=== PATIENT | male | born 1985 | race Caucasian/White ===

== ENCOUNTER 2020-10-29 11:56 | Outpatient (CLI) | payer BC, SELFPAY ==
--- NOTE | ~2020-10-29 | XR_ITS ---
XR hand LT 2V DATE: 10/29/2020 12:15 INDICATION: Left hand pain TECHNIQUE: AP and lateral views COMPARISON: None FINDINGS: No fracture or dislocation, periosteal reaction or bone destruction, erosive change or maximilian drocalcinosis. Joint spaces are preserved. IMPRESSION: Negative Reviewed, dictated and finalized at location B. IMPRESSION: Negative
[2020-10-29 12:19] LABS: Basophils Percent Auto 0.4 % (0.2-1.2); Eosinophils Percent Auto 0.4 % (0-4.4); Hematocrit 43.9 % (42.0-52.0); Hemoglobin 15.4 g/dL (14.0-18.0); Immature Granulocyte Absolute 0.01 K/mm3 (0.00-0.031); Immature Granulocyte Percent A 0.2 % (0-0.5); Lymphocytes Absolute Auto 1.71 K/mm3 (0.9-3.2); Lymphocytes Percent Auto 30.5 % (18.3-44.2); Mean Corpuscular HGB Conc 35.1 g/dl (32-36); Mean Corpuscular Hemoglobin 29.6 pg (26-34); Mean Corpuscular Volume 84.4 fl (80-100); Mean Platelet Volume 10.1 fl (7.4-10.4); Monocytes Absolute Auto 0.4 K/mm3 (0.1-0.6); Monocytes Percent Auto 7.8 % (2.6-8.5); Neutrophils Absolute Auto 3.4 K/mm3 (1.3-6.7); Neutrophils Percent Auto 60.7 % (45.5-73.1); Platelet Count Result 256 k/mm3 (150-375); White Blood Count 5.6 K/mm3 (4.5-10.0)
[2020-10-29 12:31] LABS: Anion Gap 9 mmol/L (8-16); Blood Urea Nitrogen 24 mg/dL (9-20); Calcium 9.8 mg/dL (8.4-10.2); Carbon Dioxide 28 mmol/L (22-30); Chloride 101 mmol/L (98-107); Cholesterol 187 mg/dL (0-200); Estimated Glomerular Filt Rate > 60; Glucose 91 mg/dL (75-110); HDL Direct 65 mg/dL; Potassium 4.3 mmol/L (3.4-5.0); Sodium 138 mmol/L (137-145); Triglycerides 101 mg/dL (<150)
[2020-10-29 12:42] LABS: LDL Cholesterol Direct 77 mg/dL
[2020-10-29 13:03] LABS: Prostate Specific Antigen 1.5 ng/mL (< OR = 4.0); Thyroid Stimulating Hormone 0.556 uIU/mL (0.465-4.680)
[2020-10-29 13:11] LABS: Free T4 Free Thyroxine 1.15 ng/mL (0.78-2.19)
== END 2020-10-29 11:57 | disposition home or self-care (01) ==
PROVIDERS: PCP Family Medicine; Visit Provider Nurse Practitioner Family
DX: M79.642 Pain in left hand (principal); E04.1 Nontoxic single thyroid nodule; Z13.29 Encounter for screening for other suspected endocrine disorder; Z12.5 Encounter for screening for malignant neoplasm of prostate; Z13.220 Encounter for screening for lipoid disorders; Z15.01 Genetic susceptibility to malignant neoplasm of breast; Z15.09 Genetic susceptibility to other malignant neoplasm; Z80.9 Family history of malignant neoplasm, unspecified; Z13.1 Encounter for screening for diabetes mellitus
CPT/HCPCS: 36415; 73120; 80048; 80061; 84153; 84439; 84443; 85025; G0103

== ENCOUNTER 2022-03-03 01:19 | Day surgery (SDC) | payer BC, SELFPAY ==
[2022-02-27 11:04] VITALS: BMI 28.8
--- NOTE | 2022-02-27 11:07 | PC.NURSE ---
Report to the Outpatient Waiting Room, entrance under the green pavilion located off [facility], at time 0730 on date 03/03/22. Planned Procedure Time: 0930. Time changes happen often and if your time is changed the preop area will call you the afternoon before. - You and your visitor will be asked to self-screen and do not enter if you have any COVID symptoms. - We encourage only one visitor and NO visitors under age 16 are allowed at this time. Your visitor will receive communication by the phone number that is given day of service. - The patient visitor is requested to social distance or may leave the building when not with patient due to restrictions. - A mask is OPTIONAL within the hospital. Patients may have clear liquids (water, carbonated beverages, clear teas, apple juice) until 3 hours prior to surgery with a maximum of 20 ounces. - No food from midnight until time of surgery Take the following medications with a SIP of water the morning of surgery: NONE Medications to discontinue per physician: VITAMIN Date to take last dose: 02/27/22 Please no make-up, nail telugu, hairspray, perfume, deodorant, or body powder the day of surgery. No jewelry (including any body piercings) or valuables the day of surgery, leave them at home. Please take a shower or bath the night before, or the morning of, surgery with an antibacterial soap. Wear comfortable, loose fitting clothing. - Jewelry must be removed prior to entering the operating room. Rings and piercings that are not removed may be cut off. - The hospital will not accept responsibility for valuables. - Please leave all valuables, including medications, at home the day of surgery. If you are going home after surgery, a licensed construction driver must drive you home. - NO public transportation without another adult. - We recommend that an adult stay with you for 24 hours following discharge. - We also recommend that you do not drive, make important decision, drink alcoholic beverages, or take any drugs that were not prescribed by your health care provider for at least 24 hours after your discharge time. Follow any additional instructions given to you from your surgeon. If you or anyone in your household have experienced Covid symptoms in the past week, please notify your surgeon or the nurse liaison at the phone number below for possible testing. Telephone instructions given to PT - MAKALYA TIERNEY and asked if any additional questions and then verbalized understanding. Patient advised to call surgeon office or pre surgery nurse liaison [phone] if any additional questions.
--- NOTE | 2022-03-02 07:52 | PM.IMHP ---
H&P: HPI History of Present Illness Date/Time: 03/02/22 07:52 Chief Complaint: Deviation nasal obstruction nasal congestion turbinate hypertrophy Narrative: planned surgical procedure Review of Systems Review of Systems: All systems reviewed & are unremarkable except as noted in HPI and below [facility] Past Medical History Medical History BMI 30.0-30.9,adult Thyroid nodule Surgical History Surgical History History of tonsillectomy and adenoidectomy Family History Family History Other Biallelic mutation of CHEK2 gene Carcinoma of colon Social History Social History Smoking status: Never smoker Alcohol intake: current Drinks per week: 5 Substance use: never Substance use type: does not use Living arrangements: with family Spiritual care concerns: No Meds Home Medications and Allergies Home Medications Medication Instructions Recorded Confirmed Type fluticasone propionate 50 1 spray intranasal BID #16 mL 05/23/21 02/27/22 Rx mcg/actuation nasal spray,suspension zolpidem 10 mg tablet (Ambien) 10 mg PO QHS PRN insomnia #30 tabs 11/16/21 02/27/22 Rx multivitamin 1 tablet PO DAILY 02/27/22 02/27/22 History Allergies Allergy/AdvReac Type Severity Reaction Status Date / Time No Known Allergies Allergy Verified 02/27/22 11:03 Exam Narrative: septal deviation turbinate hypertrophy Assessment and Plan Assessment and plan (1) Hypertrophy of both inferior nasal turbinates: Code(s): J34.3 - Hypertrophy of nasal turbinates Status: Acute Assessment and Plan: plan operating room endoscopic assisted septoplasty, longer than normal time, 2 hours of my time, will have to use hemitransection incision had reset caudal cartilage.? Risks discussed including bleeding infection damage to surrounding structures CSF leak brain damage blindness change in vision septal perforation failure to resolve symptoms if the septum would moved back over.? Turbinate reduction as well would need suction Bovie likely cauterize the turbinates a bit. (2) Nasal obstruction: Code(s): J34.89 - Other specified disorders of nose and nasal sinuses Status: Acute (3) Nasal congestion: Code(s): R09.81 - Nasal congestion Status: Acute (4) History of deviated nasal septum: Code(s): Z87.09 - Personal history of other diseases of the respiratory system Status: Acute
--- NOTE | 2022-03-02 15:51 | P.PNAN_ITS ---
Anes - Initial Pre Proc Eval Procedure: Operation Date: 03/03/22 07:30 Proposed Procedures p Endoscopic Septoplasty - Lj Zhou MD s Bilateral Inferior Turbinectomy with Outfracture - Lj Zhou MD Date/Time: 03/02/22 15:51 Surgeon: Lj Zhou MD Pre Op Diagnosis: Nasal Septal Deviation, Turbinate Hypertrophy Patient Data Age: 37 Gender: M Height: 1.88 m Weight: 101.6 kg Allergies Allergy/AdvReac Type Severity Reaction Status Date / Time No Known Allergies Allergy Verified 03/03/22 06:56 Home Medications Medication Instructions Recorded Confirmed Type fluticasone propionate 50 1 spray intranasal BID #16 mL 05/23/21 02/27/22 Rx mcg/actuation nasal spray,suspension zolpidem 10 mg tablet (Ambien) 10 mg PO QHS PRN insomnia #30 tabs 11/16/21 02/27/22 Rx multivitamin 1 tablet PO DAILY 02/27/22 02/27/22 History Patient hx anesthesia problems: none Family hx anesthesia problems: none Results Review: All pre-operative results and documents have been reviewed as part of the pre- operative evaluation. [facility] Past Medical History Medical History BMI 30.0-30.9,adult Thyroid nodule Surgical History Surgical History History of tonsillectomy and adenoidectomy Family History Family History Other Biallelic mutation of CHEK2 gene Carcinoma of colon Social History Social History Smoking status: Never smoker Alcohol intake: current Drinks per week: 5 Substance use: never Substance use type: does not use Living arrangements: with family Spiritual care concerns: No Anes - Eval Final PreProcedure Day of Procedure 03/02/22 15:51 Patient weight: overweight Heart: regular rate and rhythm Lungs: clear to auscultation Airway: Mallampati scale class II Neurological: alert and oriented Last oral intake: >/= 8 hours ASA classification: II Emergent: no Anesthetic plan: proceed Anesthesia type and monitoring: general ETT and standard monitoring Results Review: All pre-operative results and documents have been reviewed as part of the pre- operative evaluation. Informed Consent: The patient's anesthetic plan and its attendant risks and benefits were discussed with the patient/family/POA. Questions were solicited and answers provided to the satisfaction of the patient/family/POA.
[2022-03-03] VITALS (8 sets, daily range): BP systolic 125–169; BP diastolic 70–105; PULSE 55–83; RESP 12–18; TEMP 36.4–36.6; O2SAT 98–100
[2022-03-03] MEDS: LACTATED RINGERS 1,000 ML 30 ML IV CONT ×2 (07:01→09:09)
[2022-03-03] MEDS: ACETAMINOPHEN 500 MG TABLET 1000 MG PO (07:08)
--- NOTE | 2022-03-03 07:15 | WPDHPUPDATE1 ---
History and Physical Update Update Date/Time: 03/03/22 07:15 Update, septum and inferior turbinate submucosal reduction with outfracture
[2022-03-03] MEDS: ceFAZolin 2 GM/D5W 50 ML 2 GM/50 ML BAG IVPB (07:21)
[2022-03-03] MEDS: OXYMETAZOLINE HCL 0.05% NAS 15 ML BTL (*BKC) 1 SPRAY NASAL (07:49)
[2022-03-03] MEDS: MUPIROCIN 2% OINT 22 GM TUBE 1 APPLIC EACH NARE (09:00)
--- NOTE | 2022-03-03 09:27 | P.OP_ITS ---
Procedure Note - Detailed Date of Procedure 03/03/22 Pre-op Diagnosis Nasal Septal Deviation, Turbinate Hypertrophy, nasal obstruction, nasal congestion Post-op Diagnosis Same Procedure Performed septoplasty, inferior turbinate submucosal reduction outfracture Surgeon Lj Zhou MD Anesthesia General Indications see above Findings severely deviated septum to the left large turbinates, small perforations on the left nasal septal flap none on the right. Description of Procedure Patient identified consent verified. Patient brought operating. Time-out performed. General anesthesia induced endotracheal tube secured taped left lower lip. Patient prepped positioned Afrin-soaked pledgets placed 2nd time-out performed. Patient draped. Afrin-soaked pledgets removed 0 degree endoscope utilized total of 13 cc 1% lidocaine 1 100,000 parts epinephrine injected into the bilateral nasal septum and inferior turbinates. Andrzej incision made using a 15 blade left nasal septal flap elevated 7 Irish suction. Osteotome utilized to cross over the septum. Right nasal septal flap elevated small tears on the left especially over a large spur. Deviated septum removed with Vishal Evans forceps osteotome Ad[place]ike forceps. [place] incision then closed with 4 interrupted 5 0 fast gut sutures. Turbinates entered anteriorly using the turbinate blade they were reduced in the submucosal plane using martin rodebrider with inferior turbinate blade. They were then outfractured using the [place]. Total blood loss about 25 cc. Bilateral nasal passages suction clean. Powers splints placed sutured anteriorly using mattress 3-0 suture. I performed all dictated portions the procedure no complications. Care the patient given Anesthesiology patient taken to PACU. Estimated Blood Loss -25.0 Drains No Packing No Pathology None sent Complications No immediate complications Condition Stable Disposition PACU
[2022-03-03] MEDS: oxyCODONE HCL (*CRX) 5 MG TAB IR PO (10:09)
== END 2022-03-03 10:54 | disposition home or self-care (01) ==
PROVIDERS: PCP Family Medicine; Visit Provider Otolaryngology
PROC: (CPT 30520; principal; 2022-03-03 07:30)
PROC: (CPT 30520; 2022-03-03 07:30)
DX: J34.2 Deviated nasal septum (principal); J34.3 Hypertrophy of nasal turbinates; J34.89 Other specified disorders of nose and nasal sinuses; R09.81 Nasal congestion
CPT/HCPCS: 30520; 30140; A9270; J0330; J0690; J1200; J2405; J2704; J7120

== ENCOUNTER → 2022-08-11 13:59 | Outpatient (CLI) | payer BC, SELFPAY ==
--- NOTE | ~2022-08-11 | XR_ITS ---
EXAMINATION: XR elbow RT 2V DATE: 08/11/2022 14:45 INDICATION: Right elbow pain TECHNIQUE: Anteroposterior and lateral views of the right elbow were obtained. COMPARISON: None. FINDINGS: Alignment is normal. No fracture or joint effusion. Joint spaces are normal. Soft tissues are unremar kable. IMPRESSION: 1. Negative right elbow radiographs. Reviewed, dictated and finalized at location A.
--- NOTE | ~2022-08-11 | XR_ITS ---
EXAMINATION: XR_KNEE1-2VLT_CR, XR_KNEE1-2VRT_CR DATE: 08/11/2022 14:46 INDICATION: Unspecified knee pain TECHNIQUE: 1. Weight bearing anteroposterior and lateral views of the left knee were obtained. 2. Weight bearing anteroposterior and lateral views of the right knee were obtained. COMPARISON: None. FINDINGS: Normal alignment at the left and right knees. No fracture. Joint spaces are normal at all 3 compartme nts of both knees. Sclerotic lesion secondary to cortical thickening at the posterior lateral metaphy seal region of the distal left femur location typical of a benign cortical desmoid. No periosteal benton ction, cortical erosion or other aggressive features identified. Are typical small sclerotic bone isl ands at the lateral left and right tibial plateaus. No other suspicious lytic or blastic bone lesions . No knee joint effusions. Mild left-sided prepatellar soft tissue swelling. IMPRESSION: 1. Sclerotic lesion along the posterior left femoral metaphyseal region most likely representing a be nign cortical desmoid. 2. No knee joint effusions or acute osseous abnormality at either knee. Reviewed, dictated and finalized at location A. IMPRESSION: 1. Sclerotic lesion along the posterior left femoral metaphyseal region most li katalina representing a benign cortical desmoid. 2. No knee joint effusions or acute osseous abnormality at either knee.
--- NOTE | ~2022-08-11 | XR_ITS ---
EXAMINATION: XR chest 2V DATE: 08/11/2022 14:45 INDICATION: Cough, chest tightness, sore throat and fever TECHNIQUE: PA and lateral views of the chest were obtained. COMPARISON: None FINDINGS: The lungs are clear with no focal airspace opacities, pulmonary edema, pleural effusion or pneumothor ax. The cardiomediastinal silhouette is normal. Mild thoracic spondylosis. IMPRESSION: 1. No acute cardiopulmonary disease. Reviewed, dictated and finalized at location A.
--- NOTE | ~2022-08-11 | XR_ITS ---
EXAMINATION: XR elbow LT 2V DATE: 08/11/2022 14:45 INDICATION: Left elbow pain TECHNIQUE: Anteroposterior and lateral views of the left elbow were obtained. COMPARISON: None. FINDINGS: Alignment is normal. No fracture or joint effusion. Joint spaces are normal. Soft tissues are unremar kable. IMPRESSION: 1. Negative left elbow radiographs. Reviewed, dictated and finalized at location A.
== END ==
PROVIDERS: PCP Family Medicine; Visit Provider Nurse Practitioner Family
DX: R05.9 Cough, unspecified (principal); M25.569 Pain in unspecified knee; M25.529 Pain in unspecified elbow; M89.9 Disorder of bone, unspecified
CPT/HCPCS: 71046; 73070; 73560

== ENCOUNTER → 2022-08-14 13:06 | Outpatient (CLI) | payer BC, SELFPAY ==
--- NOTE | ~2022-08-14 | US_ITS ---
EXAMINATION: US thyroid DATE: 08/14/2022 13:23 INDICATION: Nontoxic single thyroid nodule. TECHNIQUE: Multiple ultrasound images of the thyroid were obtained. COMPARISON: None. FINDINGS: The right thyroid lobe measures 6.2 x 2.0 x 1.9 cm. The left thyroid lobe measures 5.6 x 1.9 x 2.0 c m. In the left thyroid lobe, there is a 1.6 cm solid, hypoechoic, wider than tall nodule with periph eral calcifications (TI-RADS TR4). In the right thyroid lobe, there is a 9 mm solid, hypoechoic, wide r than tall nodule with ill-defined margin without echogenic foci (TR4). IMPRESSION: 1. Thyroid nodules. Ultrasound-guided fine-needle aspiration of the left thyroid nodule is recommende d if not already performed and if not stable for 5 years. Reviewed, dictated and finalized at location A. IMPRESSION: 1. Thyroid nodules. Ultrasound-guided fine-needle aspiration of the left thyroi d nodule is recommended if not already performed and if not stable for 5 years.
== END ==
PROVIDERS: PCP Family Medicine; Visit Provider Otolaryngology
DX: E04.2 Nontoxic multinodular goiter (principal)
CPT/HCPCS: 76536

== ENCOUNTER 2022-10-06 12:39 | Outpatient (CLI) | payer BC, SELFPAY ==
--- NOTE | ~2022-10-06 | US_ITS ---
EXAMINATION: US FNA w image guidance DATE: 10/06/2022 13:56 INDICATION: Nontoxic single thyroid nodule TECHNIQUE: A time-out was performed to verify the patient's name, date of , and procedure to be performed . The procedure and its benefits and risks were discussed with the patient. Risks specifically discus sed included bleeding and infection. The patient understood the risks and agreed to proceed. The neck was prepped and draped in the usual sterile manner. 3 mL 1% lidocaine was used for local anesthesia . 6 passes were made with a 25G needle into the lesion. Appropriate needle location was documented with continuous sonographic guidance. A sterile bandage was applied. There were no immediate compli cations. FINDINGS: Grayscale ultrasound images demonstrate biopsy needles advanced into a 1.6 cm TI RADS 4 solid nodule with rim calcification in the left thyroid. IMPRESSION: 1. Successful ultrasound-guided fine needle aspiration of a 1.6 cm TI RADS 4 left thyroid nodule. Reviewed, dictated and finalized at location A. IMPRESSION: 1. Successful ultrasound-guided fine needle aspiration of a 1.6 cm TI RADS 4 l eft thyroid nodule.
== END 2022-10-06 12:40 | disposition home or self-care (01) ==
PROVIDERS: PCP Family Medicine; Visit Provider Otolaryngology
DX: E04.1 Nontoxic single thyroid nodule (principal)
CPT/HCPCS: 10005; 88173; 88305

== ENCOUNTER 2023-02-23 08:53 | Emergency (ER) | payer BC, SELFPAY ==
--- NOTE | ~2023-02-23 | US_ITS ---
Testicular ultrasound with doppler. Indication: Right testicular pain. Technique: Real-time sonography the scrotum was performed. Color flow Doppler and Doppler spectral an alysis were performed. Findings: The testes are homogeneous in echotexture bilaterally. There is no evidence of an intrates ticular mass. The right testis measures 5.0 x 2.6 x 3.9 cm and the left 4.8 x 2.4 x 3.6 cm. There is color-flow seen to both testes. Arterial and venous spectral waveforms are seen in both testes. There is no sonographic evidence of torsion. The head of the epididymis is visualized bilaterally and is within normal limits. Minimal bilateral hydroceles noted. Impression: No testicular mass or torsion. Minimal bilateral hydroceles. Reviewed, dictated and finalized at [facility]. E GRADER Impression: No testicular mass or torsion. Minimal bilateral hydroceles.
[2023-02-23 08:55] VITALS: BP 172/98; PULSE 61; RESP 16; TEMP 37; O2SAT 100
--- NOTE | 2023-02-23 09:15 | ED.MALEGU ---
HPI - Male Genitourinary General Chief complaint: Urogenital-Male Stated complaint: Pain Time Seen by Provider: 02/23/23 09:03 History of Present Illness HPI Narrative: 38-year-old male reports for evaluation for right testicular pain intermittently x3 days. Patient describes the pain as intermittent and throbbing in his right testicle that at times radiates into his right abdomen. He states he had sexual intercourse with his today after the onset of symptoms with improvement in pain, then shortly after his pain started again. He states the pain is improved with walking and standing and worse with sitting. He denies injury or trauma, dysuria, hematuria, urinary frequency or urgency, scrotal changes, lumps or bumps, swelling to his testicles. He denies flank pain, nausea or vomiting, or known fever. Denies penile discharge, lesions, anal intercourse, or concern for STDs. Related Data Home Medications Medication Instructions Recorded Confirmed multivitamin 1 tablet PO DAILY 02/27/22 02/15/23 glucosamine HCl 500 mg tablet 500 mg PO DAILY 08/02/22 02/15/23 Allergies Allergy/AdvReac Type Severity Reaction Status Date / Time No Known Allergies Allergy Verified 02/23/23 08:57 Review of Systems Review of Systems: CONSTITUTIONAL: Denies fever, chills EYES: Denies visual changes, redness, or discharge. ENT: Denies rhinorrhea, congestion, sore throat, or otalgia. CARDIOVASCULAR: Denies chest pain, palpitations, or edema. RESPIRATORY: Denies cough or dyspnea. GASTROINTESTINAL: See HPI GENITOURINARY: See HPI SKIN: Denies rash or itching. MUSCULOSKELETAL: Denies back pain, joint pain, or myalgia. NEUROLOGIC: Denies headache, numbness, dizziness, or weakness. PSYCHIATRIC: Denies anxiety or depression. PENDING SALE TO [facility] Past Medical History Medical History BMI 29.0-29.9,adult BMI 30.0-30.9,adult BMI 31.0-31.9,adult Dysuria Marital dysfunction TAI on CPAP Subclinical hyperthyroidism Thyroid nodule Surgical History Surgical History History of tonsillectomy and adenoidectomy Family History Family History Father Colon polyp Mother No problems noted. Sibling Colon polyp Other Biallelic mutation of CHEK2 gene Carcinoma of colon Social History Social History Smoking status: Never smoker Second hand tobacco smoke exposure: No Alcohol intake: current Drinks per week: 5 Substance use: never Substance use type: does not use Lack of Transportation: No Lack of Food: Never True Current Housing: I Have Housing Concerned About Future Housing: No Difficulty Paying for Meds: No Currently Unemployed: No Education: Master's Degree or Higher Difficulty w/ Childcare or Family Care: No Living arrangements: with family Occupation/Education: occupation Additional occupation/education comments: [employer] Gender identity (if verbalized by the patient): Male Spiritual care concerns: No Exam Narrative: GENERAL: Well-appearing, in no acute distress. Patient resting comfortably in exam bed. He is pleasant and conversational. HEAD: Normocephalic EYES: PERRLA ENT: Nares clear. Mucous membranes moist. Oropharynx without tonsillar hypertrophy exudate or other lesions. NECK: Supple. CHEST: No respiratory distress. Clear to auscultation, no adventitious breath sounds. HEART: Regular rate and rhythm. No murmur heard. Normal peripheral pulses. ABDOMEN: Soft, nontender, normal active bowel sounds. No guarding, rebound or rigidity. No CVA tenderness. : Scrotum without skin changes or edema. Tenderness to the inferior aspect of the R testicle. No tenderness to L testicle. No lumps, bumps, varicocele or tenderness to the epididymis palpated in either
[2023-02-23] MEDS: HYDROcodone/acetaminophen (*CRX) 5-325 MG TABLET 1 TAB PO (09:44)
[2023-02-23 09:53] LABS: Appearance Urine Clear (Clear); Bilirubin Urine Negative (Negative); Blood Urine Negative (Negative); Color Urine Yellow (Yellow); Glucose Urine UA Negative (Negative); Ketones Urine Negative (Negative); Leukocyte Esterase Ur Negative LEU/UL (Negative); Nitrate Urine Negative (Negative); Protein Urine Negative (Negative); Specific Grav Ur 1.003 (1.001-1.035); Urobilinogen Urine 0.2 mg/dL (<2.0); pH Urine 7.5 (5.0-9.0)
[2023-02-23 10:07] LABS: Add Urine Microscopic? NO
[2023-02-23] MEDS: cefTRIAXone 1 GM VIAL 0.5 GM IM (10:30)
[2023-02-23] MEDS: LIDOCAINE HCL 1% LOCAL INJ 10 ML VIAL (10:30)
[2023-02-23] MEDS: levoFLOXacin 500 MG TABLET PO (10:30)
[2023-02-23 14:30] LABS: Chlamydia trachomatis NOT DETECTED (NOT DETECTE); Neisseria gonorrhoeae PCR NOT DETECTED (NOT DETECTE)
== END 2023-02-23 10:36 | disposition home or self-care (01) ==
PROVIDERS: Emergency Provider Physician Assistant; PCP Family Medicine
DX: N43.3 Hydrocele, unspecified (principal)
CPT/HCPCS: 76870; 81003; 87491; 87591; 93976; 96372; 99284; A9270; J0696

== ENCOUNTER 2023-02-27 18:06 | Emergency (ER) | payer BC, SELFPAY ==
--- NOTE | ~2023-02-27 | CT_ITS ---
EXAMINATION: CT abdomen pelvis w con DATE: 02/27/2023 20:59 INDICATION: abdominal pain TECHNIQUE: Computed tomography (CT) of the abdomen and pelvis was performed with intravenous contrast . Automated exposure control and iterative reconstruction technique were employed. The dose-length pr oduct was 1127.21 mGy-cm. COMPARISON: None. FINDINGS: Lower thorax: Unremarkable Liver: Normal. Biliary/Gallbladder: Gallbladder is normal. No bile duct dilation. Pancreas: No mass or duct dilation. Spleen: Normal. Adrenals:No mass. Kidneys: No suspicious mass, obstructing stone, or hydronephrosis. GI tract: No small or large bowel dilation. Normal appendix. Mesentery/Peritoneum: No ascites, mass, or free air. Retroperitoneum: No mass. Pelvis: Pelvic organs are within normal limits. Soft Tissues: Soft tissues and body wall unremarkable. Bones: No acute osseous finding. Mild anterior wedge deformity at L2 and L3, presumed to be chronic or physiologic in the absence of acute pain/tenderness. IMPRESSION: No acute abdominopelvic process. Reviewed, dictated and finalized at location K. [employer]
[2023-02-27 18:11] VITALS: BP 141/74; PULSE 89; RESP 18; TEMP 36.6; O2SAT 98
--- NOTE | 2023-02-27 18:31 | ED.GENADULT ---
HPI - General Adult General Chief complaint: Urogenital-Male Stated complaint: right tesicular pain, worsening sx's from Sunday Time Seen by Provider: 02/27/23 20:40 History of Present Illness HPI narrative: Mainor Burch is a 38 y/o male who presents with reports of having abdominal pain that moved down to his testicle that started last Sunday/ he felt that his symptoms became worse Sunday ( 4 days ago) he came here and had an US of his scrotum and started on Levofloxacin. He reports he is on day 5 of the antibiotics and feeling worse / fever/chills/ worsening abdominal pain. Denies Nausea/vomiting Last BM was today around 1600 smaller then normal. Reports of having dysuria today. Related Data Home Medications Medication Instructions Recorded Confirmed multivitamin 1 tablet PO DAILY 02/27/22 02/15/23 glucosamine HCl 500 mg tablet 500 mg PO DAILY 08/02/22 02/15/23 Allergies Allergy/AdvReac Type Severity Reaction Status Date / Time No Known Allergies Allergy Verified 02/23/23 08:57 [facility] Past Medical History Medical History BMI 29.0-29.9,adult BMI 30.0-30.9,adult BMI 31.0-31.9,adult Dysuria Marital dysfunction TAI on CPAP Subclinical hyperthyroidism Thyroid nodule Surgical History Surgical History History of tonsillectomy and adenoidectomy Family History Family History Father Colon polyp Mother No problems noted. Sibling Colon polyp Other Biallelic mutation of CHEK2 gene Carcinoma of colon Social History Social History Smoking status: Never smoker Second hand tobacco smoke exposure: No Alcohol intake: current Drinks per week: 5 Substance use: never Substance use type: does not use Lack of Transportation: No Lack of Food: Never True Current Housing: I Have Housing Concerned About Future Housing: No Difficulty Paying for Meds: No Currently Unemployed: No Education: Master's Degree or Higher Difficulty w/ Childcare or Family Care: No Living arrangements: with family Occupation/Education: occupation Additional occupation/education comments: [employer] Gender identity (if verbalized by the patient): Male Spiritual care concerns: No Course Vital Signs Vital signs: Vital Signs Temperature 36.6 C 02/27/23 18:11 Pulse Rate 89 02/27/23 18:11 Respiratory Rate 18 02/27/23 18:11 Blood Pressure 141/74 H 02/27/23 18:11 Pulse Oximetry 98 02/27/23 18:11 Temperature 36.6 C 02/27/23 20:45 Pulse Rate 78 02/27/23 20:45 Respiratory Rate 16 02/27/23 20:45 Blood Pressure 142/79 H 02/27/23 20:45 Pulse Oximetry 100 02/27/23 20:45 Medical Decision Making Vital Signs Vital Signs: Vital Signs Temperature 36.6 C 02/27/23 18:11 Pulse Rate 89 02/27/23 18:11 Respiratory Rate 18 02/27/23 18:11 Blood Pressure 141/74 H 02/27/23 18:11 Pulse Oximetry 98 02/27/23 18:11 Temperature 36.6 C 02/27/23 20:45 Pulse Rate 78 02/27/23 20:45 Respiratory Rate 16 02/27/23 20:45 Blood Pressure 142/79 H 02/27/23 20:45 Pulse Oximetry 100 02/27/23 20:45 Lab Data 02/27/23 20:10 02/27/23 20:10 Labs: Lab Results 02/27/23 02/27/23 02/27/23 Range/Units 20:10 20:19 21:31 WBC 8.3 (4.5-10.0) K/mm3 RBC 5.30 (4.6-6.20) M/mm3 Hgb 15.7 (14.0-18.0) g/dL Hct 44.0 (42.0-52.0) % MCV 83.0 (80-100) fl MCH 29.6 (26-34) pg MCHC 35.7 (32-36) g/dl RDW 12.3 (11.5-14.5) % Plt Count 232 (150-375) k/mm3 MPV 10.0 (7.4-10.4) fl Immature Gran % (Auto) 0.2 (0-0.5) % Neut % (Auto) 84.8 H (45.5-73.1) % Lymph % (Auto) 8.4 L (18.3-44.2) % [place] % (Auto) 6.1 (2.6-8.5) % Eos % (Auto)
[2023-02-27 20:27] LABS: Basophils Percent Auto 0.1 % (0.2-1.2); Eosinophils Percent Auto 0.4 % (0-4.4); Hemoglobin 15.7 g/dL (14.0-18.0); Immature Granulocyte Absolute 0.02 K/mm3 (0.00-0.031); Immature Granulocyte Percent A 0.2 % (0-0.5); Lymphocytes Percent Auto 8.4 % (18.3-44.2); Mean Corpuscular HGB Conc 35.7 g/dl (32-36); Mean Corpuscular Hemoglobin 29.6 pg (26-34); Monocytes Absolute Auto 0.5 K/mm3 (0.1-0.6); Monocytes Percent Auto 6.1 % (2.6-8.5); Neutrophils Percent Auto 84.8 % (45.5-73.1); Platelet Count Result 232 k/mm3 (150-375); Red Cell Distribution Width 12.3 % (11.5-14.5); White Blood Count 8.3 K/mm3 (4.5-10.0)
[2023-02-27 20:33] LABS: Appearance Urine Clear (Clear); Bilirubin Urine Negative (Negative); Blood Urine Negative (Negative); Color Urine Yellow (Yellow); Glucose Urine UA Negative (Negative); Ketones Urine Trace mg/dL (Negative); Leukocyte Esterase Ur Negative LEU/UL (Negative); Nitrate Urine Negative (Negative); Protein Urine Negative (Negative); Specific Grav Ur 1.026 (1.001-1.035)
[2023-02-27 20:36] LABS: Lactic Acid Reflex 0.8 mmol/L (0.7-2.0)
[2023-02-27 20:38] LABS: Add Urine Microscopic? NO
[2023-02-27 20:39] LABS: Alanine Aminotransferase 33 U/L (6-50); Albumin Level 4.5 g/dL (3.5-5.1); Alkaline Phosphatase 52 U/L (38-126); Anion Gap 11 mmol/L (8-16); Aspartate Amino Transferase 29 U/L (17-59); Bilirubin,Total 1.5 mg/dL (0.2-1.3); Blood Urea Nitrogen 24 mg/dL (9-20); Carbon Dioxide 22 mmol/L (22-30); Chloride 103 mmol/L (98-107); Estimated CRCL calculation 112 ml/min; Estimated Glomerular Filt Rate > 60; Glucose 99 mg/dL (65-110); Lipase 51 U/L (23-300); Potassium 3.8 mmol/L (3.4-5.0); Sodium 136 mmol/L (137-145)
[2023-02-27 20:45] VITALS: BP 142/79; PULSE 78; RESP 16; TEMP 36.6; O2SAT 100
[2023-02-27] MEDS: HYDROcodone/acetaminophen (*CRX) 5-325 MG TABLET 1 TAB PO (21:29)
[2023-02-27 22:13] LABS: Influenza A QL RT-PCR Negative (Negative); Influenza B QL RT-PCR Negative (Negative); RSV RNA, RT-PCR Negative (Negative); SARS-CoV-2 RNA PCR Negative (Negative)
--- NOTE | 2023-02-27 22:48 | ED.GENADULT ---
HPI - General Adult General Chief complaint: Urogenital-Male Stated complaint: right tesicular pain, worsening sx's from Sunday Time Seen by Provider: 02/27/23 20:40 History of Present Illness HPI narrative: Patient presented to the emergency department with persistent testicular discomfort and new onset of right lower abdominal pain and generalized back pain. He was seen in the emergency department a few days ago and diagnosed with bilateral orchitis. Discharged home with antibiotics. He is also concerned he might have a hernia in the right lower part of his abdomen. He has not documented a fever at home feels like he has chills. Related Data Home Medications Medication Instructions Recorded Confirmed multivitamin 1 tablet PO DAILY 02/27/22 02/15/23 glucosamine HCl 500 mg tablet 500 mg PO DAILY 08/02/22 02/15/23 Allergies Allergy/AdvReac Type Severity Reaction Status Date / Time No Known Allergies Allergy Verified 02/23/23 08:57 Review of Systems Review of Systems: Review of systems negative except what is documented in the HPI [facility] Past Medical History Medical History BMI 29.0-29.9,adult BMI 30.0-30.9,adult BMI 31.0-31.9,adult Dysuria Marital dysfunction TAI on CPAP Subclinical hyperthyroidism Thyroid nodule Surgical History Surgical History History of tonsillectomy and adenoidectomy Family History Family History Father Colon polyp Mother No problems noted. Sibling Colon polyp Other Biallelic mutation of CHEK2 gene Carcinoma of colon Social History Social History Smoking status: Never smoker Second hand tobacco smoke exposure: No Alcohol intake: current Drinks per week: 5 Substance use: never Substance use type: does not use Lack of Transportation: No Lack of Food: Never True Current Housing: I Have Housing Concerned About Future Housing: No Difficulty Paying for Meds: No Currently Unemployed: No Education: Master's Degree or Higher Difficulty w/ Childcare or Family Care: No Living arrangements: with family Occupation/Education: occupation Additional occupation/education comments: [employer] Gender identity (if verbalized by the patient): Male Spiritual care concerns: No Exam Narrative: GENERAL: Well-appearing, well-nourished, and in no acute distress. HEAD: Normocephalic, atraumatic. EYES: PERRLA and EOMI. ENT: Nares clear, no rhinorrhea or epistaxis. Mucous membranes moist. NECK: Supple. CHEST: Clear to auscultation. No respiratory distress. HEART: Regular rate and rhythm. ABDOMEN: Soft/mild tenderness right lower quadrant, nondistended. EXTREMITIES: Normal range of motion. No edema. SKIN: Warm, dry, no rash. NEURO: No focal deficits. Alert and oriented x3. PSYCH: Normal mood and affect. Course Course Emergency Course: Labs all grossly unremarkable. Due to back pain and feeling like he is having a fever at home a COVID and flu were added. Those are normal. CT abdomen pelvis also negative for acute pathology. On exam he has mild right lower quadrant tenderness. Ibuprofen at home not helping his symptoms. Will DC with hydrocodone and advised continuing to use ice packs and tight underwear for the orchitis. He has follow-up with Urology in a couple days Vital Signs Vital signs: Vital Signs Temperature 36.6 C 02/27/23 18:11 Pulse Rate 89 02/27/23 18:11 Respiratory Rate 18 02/27/23 18:11 Blood Pressure 141/74 H 02/27/23 18:11 Pulse Oximetry 98 02/27/23 18:11 Temperature 36.6 C 02/27/23 20:45 Pulse Rate 78 02/27/23 20:45 Respiratory Rate 16 02/27/23 20:45 Blood Pressure 142/79 H 02/27/23 20:45 Pulse Oximetry 100 02/27/23 20:45 M
== END 2023-02-27 23:24 | disposition home or self-care (01) ==
PROVIDERS: Nurse Practitioner Family; Emergency Provider Emergency Medicine; PCP Family Medicine
DX: N45.2 Orchitis (principal); R10.9 Unspecified abdominal pain; M54.9 Dorsalgia, unspecified; Z20.822 Contact with and (suspected) exposure to COVID-19
CPT/HCPCS: 36415; 74177; 80053; 81003; 83605; 83690; 85025; 87637; 99284; A9270; Q9967

== ENCOUNTER 2023-03-25 13:51 | Emergency (ER) | payer BC, SELFPAY ==
[2023-03-25 14:09] VITALS: BP 134/83; PULSE 86; RESP 16; TEMP 36.7; O2SAT 100
--- NOTE | 2023-03-25 15:43 | ED.GENADULT ---
HPI - General Adult General Chief complaint: Upper Respiratory Infection Stated complaint: Sore Throat Source: patient Mode of arrival: ambulatory Limitations: no limitations History of Present Illness HPI narrative: Patient presents for evaluation of sore throat for a while . He indicates his has had symptoms for approximately one month and was recently diagnosed with strep. He has some chronic otalgia that he attributes to cerumen impaction. No fever, chills, nausea, vomiting, cough or SOB. He is not taking any medications to assist with his symptoms. He does not smoke. History of tonsillectomy and septoplasty Related Data Home Medications Medication Instructions Recorded Confirmed multivitamin 1 tablet PO DAILY 02/27/22 03/25/23 glucosamine HCl 500 mg tablet 500 mg PO DAILY 08/02/22 03/25/23 Allergies Allergy/AdvReac Type Severity Reaction Status Date / Time No Known Allergies Allergy Verified 03/25/23 13:53 Review of Systems Review of Systems: CONSTITUTIONAL: Denies fever, chills, or sweats. EYES: Denies visual changes, redness, or discharge. ENT: Reports sore throat. Reports chronic otalgia bilaterally which is unchanged CARDIOVASCULAR: Denies chest pain, palpitations, or edema. RESPIRATORY: Denies cough or dyspnea. GASTROINTESTINAL: Denies abdominal pain, nausea, vomiting, or diarrhea. GENITOURINARY: Denies dysuria or hematuria. SKIN: Denies rash or itching. MUSCULOSKELETAL: Denies back pain, joint pain, or myalgia. NEUROLOGIC: Denies headache, numbness, dizziness, or weakness. PSYCHIATRIC: Denies anxiety or depression. [facility] Past Medical History Medical History BMI 29.0-29.9,adult BMI 30.0-30.9,adult BMI 31.0-31.9,adult Dysuria History of gastroesophageal reflux (GERD) Hx of bronchitis Marital dysfunction TAI on CPAP Subclinical hyperthyroidism Thyroid nodule Surgical History Surgical History History of tonsillectomy and adenoidectomy Family History Family History Father Colon polyp Mother No problems noted. Sibling Colon polyp Other Biallelic mutation of CHEK2 gene Carcinoma of colon Social History Social History Smoking status: Never smoker Second hand tobacco smoke exposure: No Alcohol intake: current Drinks per week: 5 Substance use: never Substance use type: does not use Lack of Transportation: No Lack of Food: Never True Current Housing: I Have Housing Concerned About Future Housing: No Difficulty Paying for Meds: No Currently Unemployed: No Education: Master's Degree or Higher Difficulty w/ Childcare or Family Care: No Living arrangements: with family Occupation/Education: occupation Additional occupation/education comments: [employer] Gender identity (if verbalized by the patient): Male Spiritual care concerns: No Exam Narrative: GENERAL: Well-appearing, well-nourished, and in no acute distress. HEAD: Normocephalic, atraumatic. EYES: PERRLA and EOMI. ENT: Nares clear, no rhinorrhea or epistaxis. Mucous membranes moist. Tonsils surgically absent. Posterior pharyngeal erythema without exudate. Uvula is midline. Bilateral TMs pearly nix nonbulging NECK: Supple. No adenopathy or masses. No carotid bruits or JVD CHEST: Clear to auscultation. No respiratory distress. No wheezes rales or rhonchi HEART: Regular rate and rhythm. No murmur heard. Normal peripheral pulses. ABDOMEN: Soft, nontender, nondistended, normal active bowel sounds. EXTREMITIES: Normal range of motion. No edema. SKIN: Warm, dry, no rash. NEURO: No focal deficits. Alert and oriented x3. PSYCH: Normal mood and affect. Course Course Emergency Course: This is a 38-year-old
== END 2023-03-25 15:50 | disposition home or self-care (01) ==
PROVIDERS: Emergency Provider Nurse Practitioner; PCP Family Medicine
DX: J02.0 Streptococcal pharyngitis (principal); K21.9 Gastro-esophageal reflux disease without esophagitis; G47.33 Obstructive sleep apnea (adult) (pediatric)
CPT/HCPCS: 87880; 99213; G0463

== ENCOUNTER 2023-04-30 10:31 | Outpatient (CLI) | payer BC, SELFPAY | END 2023-04-30 10:32 | disposition home or self-care (01) | LOC: ANHLAB 10:33 | PROVIDERS: PCP Family Medicine; Visit Provider Surgery | DX: K40.90 Unilateral inguinal hernia, without obstruction or gangrene, not specified as recurrent (principal); Z01.818 Encounter for other preprocedural examination | CPT/HCPCS: 36415; 86850; 86900; 86901 ==

== ENCOUNTER 2023-05-01 00:49 | Day surgery (SDC) | payer BC, SELFPAY ==
[2023-04-20 17:00] VITALS: BMI 29.7
--- NOTE | 2023-04-20 17:07 | PC.NURSE ---
Report to the Outpatient Waiting Room, entrance under the green pavilion located off [facility], at time 06:00am on date 05-01-22. Planned Procedure Time: 07:30am. Time changes happen often and if your time is changed the preop area will call you the afternoon before. - You and your visitor will be asked to self-screen and do not enter if you have any COVID symptoms. - A mask is optional within the hospital at this time. Patients may have clear liquids (water, carbonated beverages, clear teas, apple juice) until 3 hours prior to surgery (04:30AM) with a maximum of 20 ounces. - No food from midnight until time of surgery Take the following medications with a SIP of water the morning of surgery: N/A DO NOT STOP ANY OF YOUR OTHER PRESCRIPTION MEDICATIONS PRIOR TO SURGERY ?EXCEPT THE FOLLOWING Medications to discontinue per physician VITAMINS Date to take last dose 04-27-23 Please no make-up, nail bangladeshi, hairspray, perfume, deodorant, or body powder the day of surgery. No jewelry (including any body piercings) or valuables the day of surgery, leave them at home. Please take a shower or bath the night before, or the morning of, surgery with a HIBICLENS soap. Wear comfortable, loose fitting clothing. - Jewelry must be removed prior to entering the operating room. Rings and piercings that are not removed may be cut off. - The hospital will not accept responsibility for valuables. - Please leave all valuables, including medications, at home the day of surgery. If you are going home after surgery, a licensed pick up driver must drive you home. - NO public transportation without another adult if you receive anesthesia. - We recommend that an adult stay with you for 24 hours following discharge. - We also recommend that you do not drive, make important decision, drink alcoholic beverages, or take any drugs that were not prescribed by your health care provider for at least 24 hours after your discharge time. Follow any additional instructions given to you from your surgeon. If you or anyone in your household have experienced Covid symptoms in the past week, please notify your surgeon or the nurse liaison at the phone number below for possible testing. Telephone instructions given to PATIENT and asked if any additional questions and then verbalized understanding. Patient advised to call surgeon office or pre surgery nurse liaison [phone] if any additional questions.
--- NOTE | 2023-04-30 14:16 | WPDANESEPPF ---
Anes - Initial Pre Proc Eval Procedure: Operation Date: 05/01/23 07:30 Proposed Procedures p Laparoscopic Right Inguinal Hernia Repair with Mesh, Davinci Assisted - James lCayton DO Date/Time: 04/30/23 14:16 Surgeon: James Clayton DO Pre Op Diagnosis: Right Inguinal Hernia Patient Data Age: 38 Gender: M Height: 1.88 m Weight: 105 kg Allergies Allergy/AdvReac Type Severity Reaction Status Date / Time No Known Allergies Allergy Verified 05/01/23 06:42 Home Medications Medication Instructions Recorded Confirmed Type multivitamin 1 tablet PO DAILY 02/27/22 05/01/23 History glucosamine HCl 500 mg tablet 500 mg PO DAILY 08/02/22 05/01/23 History meloxicam 15 mg tablet 15 mg PO DAILY #90 tabs 11/02/22 05/01/23 Rx modafinil 200 mg tablet 200 mg PO QAM #30 tabs 02/15/23 05/01/23 Rx zolpidem 10 mg tablet (Ambien) 10 mg PO QHS PRN insomnia #30 tabs 02/20/23 05/01/23 Rx Patient hx anesthesia problems: none Family hx anesthesia problems: none Results Review: All pre-operative results and documents have been reviewed as part of the pre-operative evaluation. [facility] Past Medical History Medical History (Updated 04/23/23 @ 17:03 by Lj Zhou MD) BMI 29.0-29.9,adult BMI 30.0-30.9,adult BMI 31.0-31.9,adult Dysuria History of gastroesophageal reflux (GERD) Hx of bronchitis Inguinal hernia Marital dysfunction TAI on CPAP Subclinical hyperthyroidism Thyroid nodule Surgical History Surgical History History of tonsillectomy and adenoidectomy Family History Family History Father Colon polyp Mother No problems noted. Sibling Colon polyp Other Biallelic mutation of CHEK2 gene Carcinoma of colon Social History Social History Smoking status: Never smoker Second hand tobacco smoke exposure: No Alcohol intake: current Drinks per week: 2 Substance use: never Substance use type: does not use Lack of Transportation: No Lack of Food: Never True Current Housing: I Have Housing Concerned About Future Housing: No Difficulty Paying for Meds: No Currently Unemployed: No Education: Master's Degree or Higher Difficulty w/ Childcare or Family Care: No Living arrangements: with family Occupation/Education: occupation Additional occupation/education comments: [employer] Gender identity (if verbalized by the patient): Male Spiritual care concerns: No Anes - Eval Final PreProcedure Day of Procedure 04/30/23 14:16 Patient weight: obese Heart: regular rate and rhythm Lungs: clear to auscultation Airway: Mallampati scale class II Neurological: alert and oriented Last oral intake: >/= 8 hours ASA classification: II Emergent: no Anesthetic plan: proceed Anesthesia type and monitoring: general ETT and standard monitoring Results Review: All pre-operative results and documents have been reviewed as part of the pre-operative evaluation. Informed Consent: The patient's anesthetic plan and its attendant risks and benefits were discussed with the patient/family/POA. Questions were solicited and answers provided to the satisfaction of the patient/family/POA.
[2023-05-01] VITALS (7 sets, daily range): BP systolic 118–143; BP diastolic 71–95; PULSE 57–77; RESP 12–16; TEMP 36.3–36.5; O2SAT 96–100; BMI 30.8
[2023-05-01] MEDS: LACTATED RINGERS 1,000 ML 30 ML IV CONT ×2 (06:32→08:52)
[2023-05-01] MEDS: ACETAMINOPHEN 500 MG TABLET 1000 MG PO (06:33)
[2023-05-01] MEDS: KETOROLAC 15 MG/ML VIAL (*BKC) IV PUSH (06:33)
--- NOTE | 2023-05-01 07:31 | WPDHPUPDATE1 ---
History and Physical Update Update Date/Time: 05/01/23 07:31 History and Physical has been reviewed, including an updated exam of the patient. There are NO changes in the patient's condition. Risks, benefits, and alternatives have been discussed and questions answered. Patient agrees to proceed with procedure.
--- NOTE | 2023-05-01 07:31 | PM.IMHP ---
H&P: HPI History of Present Illness Date/Time: 05/01/23 07:31 Chief Complaint: right inguinal hernia Narrative: 38 yo man presents for right inguinal hernia repair. He reports no changes since last seen in office. Review of Systems Review of Systems: All systems reviewed & are unremarkable except as noted in HPI and below Constitutional: Constitutional: Denies chills, Denies fever(s), Denies headache(s) and Denies weight loss Eyes: Eyes: Denies change in vision ENT: Denies dizziness, Denies headache(s), Denies neck mass and Denies throat swelling Cardiovascular: Cardiovascular: Denies chest pain, Denies lightheadedness and Denies dyspnea Respiratory: Respiratory: Denies cough, Denies dyspnea and Denies wheezing Gastrointestinal: Gastrointestinal: Denies abdominal pain, Denies change in bowel habits, Denies nausea and Denies vomiting Genitourinary: Genitourinary: Denies hematuria and Denies dysuria Musculoskeletal: Musculoskeletal: Reports as per HPI Integumentary/Breasts: Skin/Breast: Reports as per HPI Neurologic: Denies dizziness and Denies headache(s) Allergic/Immunologic: Allergic/Immunologic: Denies throat swelling and Denies wheezing [facility] Past Medical History Medical History (Updated 04/23/23 @ 17:03 by Lj Zhou MD) BMI 29.0-29.9,adult BMI 30.0-30.9,adult BMI 31.0-31.9,adult Dysuria History of gastroesophageal reflux (GERD) Hx of bronchitis Inguinal hernia Marital dysfunction TAI on CPAP Subclinical hyperthyroidism Thyroid nodule Surgical History Surgical History History of tonsillectomy and adenoidectomy Family History Family History Father Colon polyp Mother No problems noted. Sibling Colon polyp Other Biallelic mutation of CHEK2 gene Carcinoma of colon Social History Social History Smoking status: Never smoker Second hand tobacco smoke exposure: No Alcohol intake: current Drinks per week: 2 Substance use: never Substance use type: does not use Lack of Transportation: No Lack of Food: Never True Current Housing: I Have Housing Concerned About Future Housing: No Difficulty Paying for Meds: No Currently Unemployed: No Education: Master's Degree or Higher Difficulty w/ Childcare or Family Care: No Living arrangements: with family Occupation/Education: occupation Additional occupation/education comments: [employer] Gender identity (if verbalized by the patient): Male Spiritual care concerns: No Meds Home Medications and Allergies Home Medications Medication Instructions Recorded Confirmed Type multivitamin 1 tablet PO DAILY 02/27/22 05/01/23 History glucosamine HCl 500 mg tablet 500 mg PO DAILY 08/02/22 05/01/23 History meloxicam 15 mg tablet 15 mg PO DAILY #90 tabs 11/02/22 05/01/23 Rx modafinil 200 mg tablet 200 mg PO QAM #30 tabs 02/15/23 05/01/23 Rx zolpidem 10 mg tablet (Ambien) 10 mg PO QHS PRN insomnia #30 tabs 02/20/23 05/01/23 Rx Allergies Allergy/AdvReac Type Severity Reaction Status Date / Time No Known Allergies Allergy Verified 05/01/23 06:42 Vital Signs Vital Signs - 24 hr 05/01/23 06:47 Temperature 36.3 C L Pulse Rate 57 L Respiratory Rate 16 Blood Pressure 118/72 Pulse Oximetry 100 Oxygen Delivery Room Air Exam Const: General: no acute distress and alert Orientation/consciousness: patient oriented x3 HENMT: Head: normocephalic and atraumatic Ears: hearing grossly normal bilaterally Face/Nose/Sinus: Normal nares present Mouth: Yes Normal oral and palatal mucosa present Eyes: Periorbital: periorbital findings normal Sclera: sclerae normal EOM: EOMs intact bilaterally Neck: Neck: normal visual inspection, no lymphadenopathy and trachea midline Chest: Chest palpation & inspection: norm
[2023-05-01] MEDS: ceFAZolin 2 GM/D5W 50 ML 2 GM/50 ML BAG IVPB (07:37)
[2023-05-01] MEDS: BUPIVACAINE/EPINEPHRINE 0.5% 30 ML VIAL INFILTRATE (08:08)
--- NOTE | 2023-05-01 08:37 | W.PM.PROC2 ---
Procedure Note - Detailed Date of Procedure 05/01/23 Pre-op Diagnosis Right Inguinal Hernia Post-op Diagnosis Same (Indirect RIH) Procedure Performed Laparoscopic right inguinal hernia repair with mesh, da Darian assisted Surgeon James Clayton, Anesthesia General and Local (0.5% bupivacaine with epinephrine) Indications This is a 38-year-old male who presented with right groin pain for about the past 2 months. The pain would radiate down into the right testicle. He underwent testicular ultrasound which was normal and a CT abdomen and pelvis was also normal. He was found to have a small reducible right inguinal hernia on physical exam. Discussions were made with the patient about treatment options and decision was made to proceed with robotic assisted laparoscopic right inguinal hernia repair with mesh. Findings Laparoscopic right inguinal hernia repair was performed. The patient was found have a small indirect right inguinal hernia. There was no evidence of a left inguinal hernia. A robotic transabdominal preperitoneal approach was utilized for the right inguinal hernia repair. Once a wide enough preperitoneal pocket was created and the hernia sac was reduced, I then placed a large right 3DMax mid mesh overlying the entire right myopectineal orifice. No specimens were obtained for pathology. Description of Procedure Procedure as well as risks, benefits, and alternatives were discussed with the patient. Written consent was obtained and placed in chart prior to procedure. Patient was brought back to surgical suite. He was placed supine on operating table. Time-out was done to confirm patient and procedure. He was then intubated by Anesthesia Department. His abdomen was prepped and draped in sterile fashion using chlorhexidine prep. 0.5% bupivacaine with epinephrine was infiltrated at each location for incision. An 8 mm incision was made in the left lateral abdomen, and a 5 mm Optiview trocar was advanced through the abdominal layers under direct visualization. Once inside the abdominal cavity, carbon dioxide insufflation was used to create a pneumoperitoneum. A camera was inserted and the abdominal cavity was inspected. The patient was placed in slight Trendelenburg position. An 8 millimeter incision was made on the right lateral abdomen and an 8 millimeter trocar was inserted under direct visualization. Another 8 millimeter incision was made just superior to the umbilicus and an 8 millimeter trocar was inserted under direct visualization. The 5 mm port was then removed and this was replaced with another 8 mm robotic port. The robotic arms were brought up to the patient's bedside and secured to the ports. The camera and instruments were inserted. I then moved over to the robotic console and took control of the camera and instruments. After careful inspection of the abdominal cavity, I began scoring the peritoneum along the right lower quadrant using scissors with electrocautery. The preperitoneal plane was entered and this was carefully dissected caudally along the inferior epigastric vessels. Careful dissection with scissors with electrocautery and blunt dissection was used to continue this dissection. I dissected far enough laterally to allow for mesh placement, and also dissected medially to identify the pubic arch and Samuel's ligament. The hernia sac was identified and carefully dissected posteriorly. The cord contents were also identified and the peritoneum was carefully dissected far enough posteriorly to allow for mesh placement. Once an adequate pocket was created, I then placed the mesh within the preperitoneal pocket and carefully unfolded it. The mesh was centered on the hernia defect with adequate overlap circumferentially. The inferior edge of the mesh was inspected to ensure that it was far enough away from the peritoneal edge. The mesh appeared in proper position overlying the entire myopectineal orifice. The mesh was secu
[2023-05-01] MEDS: oxyCODONE HCL (*CRX) 5 MG TAB IR PO (09:30)
== END 2023-05-01 10:30 | disposition home or self-care (01) ==
PROVIDERS: PCP Family Medicine; Visit Provider Surgery
PROC: 8E0Y4CZ Robotic Assisted Procedure of Lower Extremity, Percutaneous Endoscopic Approach (ICD-10-PCS; CPT 49650; principal; 2023-05-01 07:30)
DX: K40.90 Unilateral inguinal hernia, without obstruction or gangrene, not specified as recurrent (principal); G47.33 Obstructive sleep apnea (adult) (pediatric)
CPT/HCPCS: 49650; S2900; 36415; 86850; 86900; 86901; A9270; C1781; J0690; J1100; J1170; J1596; J1885; J2250; J2405; J2704; J2710; J3010; J7030; J7120

== ENCOUNTER 2023-07-20 10:46 | Outpatient (CLI) | payer BC, SELFPAY ==
--- NOTE | ~2023-07-20 | US_ITS ---
EXAMINATION: US thyroid DATE: 07/20/2023 11:04 INDICATION: Multinodular goiter. TECHNIQUE: Multiple ultrasound images of the thyroid were obtained. COMPARISON: None. FINDINGS: The right thyroid lobe measures 5.5 x 2.1 x 2.0 cm. The left thyroid lobe measures 5.8 x 1.9 x 1.8 c m. In the left thyroid lobe, there is a 16 mm solid, hypoechoic, wider than tall nodule with ill-def ined margin and peripheral calcifications and macrocalcifications (TI-RADS TR5), stable from 08/14/22. In the right thyroid lobe, there is a 13 mm solid, hypoechoic, wider than tall nodule with ill-define d margin without echogenic foci (TR4). In the right thyroid lobe, there is a 7 mm solid, very hypoech oic, wider than tall nodule with smooth margin without echogenic foci (TR4). In the right thyroid lob e, there is a 3 mm nodule. IMPRESSION: 1. Multinodular goiter. Reportedly, the patient has had 6 inconclusive biopsies of the left thyroid n odule. Consider thyroid ultrasound in one year. Reviewed, dictated and finalized at location A. IMPRESSION: 1. Multinodular goiter. Reportedly, the patient has had 6 inconclusive biopsies of the left thyroid nodule. Consider thyroid ultrasound in one year.
== END 2023-07-20 10:47 ==
LOC: MICIMG 10:46
PROVIDERS: PCP Internal Medicine; Visit Provider Internal Medicine
DX: E04.2 Nontoxic multinodular goiter (principal); E05.90 Thyrotoxicosis, unspecified without thyrotoxic crisis or storm
CPT/HCPCS: 76536

== ENCOUNTER 2023-08-21 12:58 | Outpatient (CLI) | payer BC, SELFPAY ==
--- NOTE | ~2023-08-21 | US_ITS ---
EXAMINATION: US FNA w image guidance DATE: 08/21/2023 14:07 INDICATION: Multinodular goiter TECHNIQUE: A time-out was performed to verify the patient's name, date of , and procedure to be performed . The procedure and its benefits and risks were discussed with the patient. Risks specifically discus sed included bleeding and infection. The patient understood the risks and agreed to proceed. The neck was prepped and draped in the usual sterile manner. 3 mL 1% lidocaine was used for local anesthesia . 6 passes were made with a 25G needle into the lesion. Appropriate needle location was documented with continuous sonographic guidance. A sterile bandage was applied. There were no immediate compli cations. FINDINGS: Grayscale ultrasound images demonstrate biopsy needles advanced into a 1.5 cm TI RADS 5 rim calcified nodules in the mid left thyroid. IMPRESSION: 1. Successful ultrasound-guided fine needle aspiration of a 1.5 cm TI RADS 5 left thyroid nodule. Reviewed, dictated and finalized at location A. IMPRESSION: 1. Successful ultrasound-guided fine needle aspiration of a 1.5 cm TI RADS 5 l eft thyroid nodule.
== END 2023-08-21 12:59 | disposition home or self-care (01) ==
PROVIDERS: PCP Family Medicine; Visit Provider Internal Medicine
DX: E04.1 Nontoxic single thyroid nodule (principal); E05.90 Thyrotoxicosis, unspecified without thyrotoxic crisis or storm
CPT/HCPCS: 10005; 88172; 88173; 88305

== ENCOUNTER 2023-09-25 01:58 | Day surgery (SDC) | payer BC, SELFPAY ==
[2023-09-07 14:32] VITALS: BMI 28.8
[2023-09-07 14:42] VITALS: BMI 28.8
[2023-09-25 09:25] VITALS: BP 115/68; PULSE 60; RESP 20; TEMP 36; O2SAT 98
[2023-09-25] MEDS: LACTATED RINGERS 1,000 ML 150 ML IV CONT (09:34)
--- NOTE | 2023-09-25 10:28 | WPDANESEPPF ---
Anes - Initial Pre Proc Eval Procedure: Operation Date: 09/25/23 10:30 Proposed Procedures p Screening Colonoscopy - James Clayton DO Date/Time: 09/25/23 10:28 Surgeon: James Clayton DO Pre Op Diagnosis: Screening for malignant neoplasm of colon Patient Data Age: 38 Gender: M Height: 1.88 m Weight: 104.8 kg Last Vital Signs Temp 96.8 F L 09/25/23 09:25 Pulse 60 09/25/23 09:25 Resp 20 09/25/23 09:25 BP 115/68 09/25/23 09:25 Pulse Ox 98 09/25/23 09:25 O2 Del Method Room Air 09/25/23 09:25 Allergies Allergy/AdvReac Type Severity Reaction Status Date / Time No Known Allergies Allergy Verified 09/25/23 09:24 Home Medications Medication Instructions Recorded Confirmed Type multivitamin 1 tablet PO DAILY 02/27/22 09/07/23 History glucosamine HCl 500 mg tablet 500 mg PO DAILY 08/02/22 09/07/23 History meloxicam 15 mg tablet 15 mg PO DAILY #90 tabs 11/02/22 09/07/23 Rx mupirocin 2 % topical ointment 1 applic topical BID #22 grams 06/25/23 09/07/23 Rx zolpidem 10 mg tablet (Ambien) 10 mg PO QHS PRN insomnia #30 tabs 07/29/23 09/07/23 Rx modafinil 200 mg tablet 200 mg PO QAM 09/07/23 09/07/23 History Patient hx anesthesia problems: none Family hx anesthesia problems: none Results Review: All pre-operative results and documents have been reviewed as part of the pre-operative evaluation. [facility] Past Medical History Medical History BMI 29.0-29.9,adult BMI 30.0-30.9,adult BMI 31.0-31.9,adult Dysuria History of gastroesophageal reflux (GERD) Hx of bronchitis Inguinal hernia Marital dysfunction TAI on CPAP Subclinical hyperthyroidism Thyroid nodule Surgical History Surgical History History of inguinal hernia repair Laparoscopic right inguinal hernia repair with mesh, da Darian assisted 05/01/23 RHW History of tonsillectomy and adenoidectomy Family History Family History Father Colon polyp Mother No problems noted. Sibling Colon polyp Other Biallelic mutation of CHEK2 gene Carcinoma of colon Social History Social History Smoking status: Never smoker Second hand tobacco smoke exposure: No Alcohol intake: current Drinks per week: 3 Substance use: never Substance use type: does not use Lack of Transportation: No Lack of Food: Never True Current Housing: I Have Housing Concerned About Future Housing: No Difficulty Paying for Meds: No Currently Unemployed: No Education: Master's Degree or Higher Difficulty w/ Childcare or Family Care: No Living arrangements: with family Occupation/Education: occupation Additional occupation/education comments: [employer] Gender identity (if verbalized by the patient): Male Spiritual care concerns: No Anes - Eval Final PreProcedure Day of Procedure 09/25/23 10:28 Patient weight: normal Heart: regular rate and rhythm Lungs: clear to auscultation Airway: Mallampati scale class II Neurological: alert and oriented Last oral intake: >/= 8 hours ASA classification: II Emergent: no Anesthetic plan: proceed Anesthesia type and monitoring: general GIVS and standard monitoring Results Review: All pre-operative results and documents have been reviewed as part of the pre-operative evaluation. Informed Consent: The patient's anesthetic plan and its attendant risks and benefits were discussed with the patient/family/POA. Questions were solicited and answers provided to the satisfaction of the patient/family/POA.
--- NOTE | 2023-09-25 10:38 | PM.IMHP ---
H&P: HPI History of Present Illness Date/Time: 09/25/23 10:38 Chief Complaint: hx colon polyps, family history of colon polyps and colon cancer Narrative: this is a 38-year-old man who presents for colonoscopy. He last had a colonoscopy about 5 years ago and polyps were removed. He has a strong family history with multiple family members having had large polyps. He also has multiple uncles that colon cancer. He denies any hematochezia or melena. Review of Systems Review of Systems: All systems reviewed & are unremarkable except as noted in HPI and below Constitutional: Constitutional: Denies chills, Denies fever(s), Denies headache(s) and Denies weight loss Eyes: Eyes: Denies change in vision ENT: Denies dizziness, Denies headache(s), Denies neck mass and Denies throat swelling Cardiovascular: Cardiovascular: Denies chest pain, Denies lightheadedness and Denies dyspnea Respiratory: Respiratory: Denies cough, Denies dyspnea and Denies wheezing Gastrointestinal: Gastrointestinal: Denies abdominal pain, Denies change in bowel habits, Denies nausea and Denies vomiting Genitourinary: Genitourinary: Denies hematuria and Denies dysuria Musculoskeletal: Musculoskeletal: Reports as per HPI Integumentary/Breasts: Skin/Breast: Reports as per HPI Neurologic: Denies dizziness and Denies headache(s) Allergic/Immunologic: Allergic/Immunologic: Denies throat swelling and Denies wheezing PMF Past Medical History Medical History BMI 29.0-29.9,adult BMI 30.0-30.9,adult BMI 31.0-31.9,adult Dysuria History of gastroesophageal reflux (GERD) Hx of bronchitis Inguinal hernia Marital dysfunction TAI on CPAP Subclinical hyperthyroidism Thyroid nodule Surgical History Surgical History History of inguinal hernia repair Laparoscopic right inguinal hernia repair with mesh, da Darian assisted 05/01/23 RHW History of tonsillectomy and adenoidectomy Family History Family History Father Colon polyp Mother No problems noted. Sibling Colon polyp Other Biallelic mutation of CHEK2 gene Carcinoma of colon Social History Social History Smoking status: Never smoker Second hand tobacco smoke exposure: No Alcohol intake: current Drinks per week: 3 Substance use: never Substance use type: does not use Lack of Transportation: No Lack of Food: Never True Current Housing: I Have Housing Concerned About Future Housing: No Difficulty Paying for Meds: No Currently Unemployed: No Education: Master's Degree or Higher Difficulty w/ Childcare or Family Care: No Living arrangements: with family Occupation/Education: occupation Additional occupation/education comments: [employer] Gender identity (if verbalized by the patient): Male Spiritual care concerns: No Meds Home Medications and Allergies Home Medications Medication Instructions Recorded Confirmed Type multivitamin 1 tablet PO DAILY 02/27/22 09/07/23 History glucosamine HCl 500 mg tablet 500 mg PO DAILY 08/02/22 09/07/23 History meloxicam 15 mg tablet 15 mg PO DAILY #90 tabs 11/02/22 09/07/23 Rx mupirocin 2 % topical ointment 1 applic topical BID #22 grams 06/25/23 09/07/23 Rx zolpidem 10 mg tablet (Ambien) 10 mg PO QHS PRN insomnia #30 tabs 07/29/23 09/07/23 Rx modafinil 200 mg tablet 200 mg PO QAM 09/07/23 09/07/23 History Allergies Allergy/AdvReac Type Severity Reaction Status Date / Time No Known Allergies Allergy Verified 09/25/23 09:24 Vital Signs Vital Signs - 24 hr 09/25/23 09:25 Temperature 36.0 C L Pulse Rate 60 Respiratory Rate 20 Blood Pressure 115/68 Pulse Oximetry 98 Oxygen Delivery Room Air Exam Const: General: no acute distress and alert Orientation/cons
[2023-09-25 11:03] VITALS: BP 112/63; PULSE 67; RESP 17; O2SAT 98
[2023-09-25 11:13] VITALS: BP 119/65; PULSE 68; RESP 18; O2SAT 100
[2023-09-25 11:23] VITALS: BP 113/69; PULSE 60; RESP 18
== END 2023-09-25 11:30 | disposition home or self-care (01) ==
PROVIDERS: PCP Family Medicine; Visit Provider Surgery
PROC: 0DJD8ZZ Inspection of Lower Intestinal Tract, Via Natural or Artificial Opening Endoscopic (ICD-10-PCS; CPT 45378; principal; 2023-09-25 10:30)
DX: Z12.11 Encounter for screening for malignant neoplasm of colon (principal); Z86.010 Personal history of colon polyps; Z83.719 Family history of colon polyps, unspecified; G47.33 Obstructive sleep apnea (adult) (pediatric)
CPT/HCPCS: 45378; J2704; J7120

== ENCOUNTER 2023-11-02 10:40 | Outpatient (CLI) | payer BC, SELFPAY ==
--- NOTE | ~2023-11-02 | US_ITS ---
EXAMINATION: US thyroid DATE: 11/02/2023 11:02 INDICATION: Thyrotoxicosis. Multinodular goiter. TECHNIQUE: Multiple ultrasound images of the thyroid were obtained. COMPARISON: 07/20/2023 FINDINGS: The right thyroid lobe measures 5.7 x 2.0 x 2.1 cm. The left thyroid lobe measures 5.2 x 1.9 x 2.0 c m. No change in the previously described 1.6 cm TI RADS 5 nodule with peripheral calcification of th e microcalcifications in the left thyroid lobe with benign biopsy on 08/21/2023. Also without significa nt interval change is a 1.1 cm solid wider than tall hypoechoic nodule with ill-defined margins and w ithout echogenic foci (TI RADS 4) or a second 7 mm solid very hypoechoic nodule with ill-defined darrell ins and without echogenic foci (TI RADS 4) both in the right thyroid lobe. There is otherwise normal echotexture, echogenicity and vascular flow throughout the thyroid gland. IMPRESSION: 1. Multinodular goiter with no change in the 3 previously noted nodules, including the 1.6 cm TI RADS 5 left thyroid nodule which demonstrated benign pathology on biopsy from 2 months prior. Reviewed, dictated and finalized at location A. IMPRESSION: 1. Multinodular goiter with no change in the 3 previously noted nodules, includ ing the 1.6 cm TI RADS 5 left thyroid nodule which demonstrated benign patholog y on biopsy from 2 months prior.
== END 2023-11-02 10:41 ==
PROVIDERS: PCP Family Medicine; Visit Provider Internal Medicine
DX: E04.2 Nontoxic multinodular goiter (principal)
CPT/HCPCS: 76536

== ENCOUNTER 2023-11-06 13:45 | Outpatient (CLI) | payer BC, SELFPAY ==
--- NOTE | ~2023-11-06 | NM_ITS ---
EXAMINATION: NM thyroid scan w uptake DATE: 11/07/2023 14:48 INDICATION: Subclinical hyperthyroidism COMPARISON: None. TECHNIQUE: 353 microcuries I-123 was administered orally in capsule form. Scintigraphic images of th e thyroid gland were obtained at 24 hours. Thyroid uptake was calculated by the technologist. FINDINGS: The thyroid uptake is 14.8% (normal 10-30%), with the right lobe measuring 8.4% uptake and the left 6 .7%. There is no focal area of decreased or increased activity to suggest hypofunctioning or hyperfun ctioning nodule. IMPRESSION: 1. Normal thyroid scintigraphy and 24-hour iodine uptake. Reviewed, dictated and finalized at location A.
== END 2023-11-06 13:46 | disposition home or self-care (01) ==
LOC: ANHIMG 13:46
PROVIDERS: PCP Family Medicine; Visit Provider Internal Medicine
DX: E05.90 Thyrotoxicosis, unspecified without thyrotoxic crisis or storm (principal); E04.2 Nontoxic multinodular goiter
CPT/HCPCS: 78014; A9516

== ENCOUNTER 2024-05-01 13:00 | Outpatient (CLI) | payer BC, SELFPAY ==
--- NOTE | ~2024-05-01 | US_ITS ---
EXAMINATION: US FNA w image guidance DATE: 05/01/2024 13:44 INDICATION: Right thyroid nodule. TECHNIQUE: The procedure and its benefits and risks were discussed with the patient. Risks specifically discusse d included bleeding. The patient verbalized understanding of the risks and agreed to proceed. The nec k was prepped and draped in the usual sterile manner. 1% lidocaine was used for local anesthesia. 9 passes were made with a 25G needle into the lesion under ultrasound guidance. There were no immedia te complications. FINDINGS: Grayscale ultrasound images demonstrate needles advanced into an 11 mm nodule in right thyroid lobe f or biopsy. IMPRESSION: 1. Ultrasound-guided fine needle aspiration of a right thyroid nodule. Reviewed, dictated and finalized at location A. GION TEACHER
== END 2024-05-01 13:01 | disposition home or self-care (01) ==
PROVIDERS: Visit Provider Internal Medicine
DX: E04.1 Nontoxic single thyroid nodule (principal)
CPT/HCPCS: 10005; 88172; 88173; 88177; 88305

== ENCOUNTER 2024-06-11 11:25 | Outpatient (CLI) | payer BC, SELFPAY ==
--- NOTE | ~2024-06-11 | US_ITS ---
EXAMINATION: US thyroid DATE: 06/11/2024 12:30 INDICATION: Multinodular goiter. TECHNIQUE: Multiple ultrasound images of the thyroid were obtained. COMPARISON: Ultrasound 11/02/2023 FINDINGS: The right thyroid lobe measures 5.2 x 1.6 x 2.2 cm. The left thyroid lobe measures 5.4 x 1.4 x 2.3 c m. In the right thyroid lobe, there is a 12 mm solid, hypoechoic, wider than tall nodule with ill-de fined margin without echogenic (TI-RADS TR4) status post nondiagnostic biopsy on 05/01/24. In the righ t thyroid lobe, there is a 3 mm nodule. In the left thyroid lobe, there is a 2 mm nodule. In the left thyroid lobe, there is a 3 mm nodule. In the right thyroid lobe, there is a 6 mm mixed cystic and so lid, hypoechoic, wider than tall nodule with ill-defined margin without echogenic foci (TR3). In the left thyroid lobe, there is a 16 mm solid, hypoechoic, wider than tall nodule with calcified margin ( TR4), stable from 08/21/23 when biopsy was benign. IMPRESSION: 1. Multinodular goiter. Consider thyroid ultrasound in one year. Reviewed, dictated and finalized at location [facility]. [facility]
--- OUTSIDE RECORDS SUMMARY | 2024-06-11 13:23 | XMS_ITS | Clinical Summary ---
Author Organization [facility] Address [address] [place] [address] Care Team Providers Care Iron Caster Name Role Phone Елена, Ethan Luevano MD Primary Care Provider Allergies No known active allergies Medications multivitamin (DAILY-CLINT) tablet Take 1 Tablet by mouth daily. Active omeprazole (PriLOSEC) 20 mg Capsule, Delayed Release(E.C.) Take 1 Capsule (20 mg) by mouth daily. 90 Capsule 4 0 Active fluticasone propionate (FLONASE) 50 mcg/spray [place], Suspension nasal inhaler Administer 2 Sprays in each nostril daily. Active Active Problems Problem Noted Date Diagnosed Date Tobacco use 05/10/2019 Immunizations Immunization Administration Dates Next Due Influenza Seasonal Unspecified Formulation IM Family History Medical History Relation Name Comments Healthy Brother Healthy Father Healthy Mother Colon Cancer Other 3 paternal uncles Healthy Sister 1 Healthy Sister 2 Relation Name Status Comments Brother Alive Father Alive Mother Alive Other 3 paternal uncles f rom colon cancer Sister 1 Alive Sister 2 Alive Social History Tobacco Use Types Packs/Day Years Used Date Smoking Tobacco: Light Smoker Cigarettes Smokeless Tobacco: Never Comments:1 cigarette week oc cassionally Alcohol Use Standard Drinks/Week Comments Yes 12 (1 standard drink = 0.6 oz pu re alcohol) Sex and Gender Information Value Date Recorded Sex Assigned at Not on file Legal Sex Male 3:04 PM LOCAL AREA NETWORK SYSTEMS ADMINSTRATOR Gender Identity Not on file Sexual Orientation Not on file Last Filed Vital Signs Vital Sign Reading Time Taken Comments Blood Pressure 123/82 05/29/2019 10:20 AM LOCAL AREA NETWORK SYSTEMS ADMINSTRATOR Pulse 139 05/29/2019 10:20 AM LOCAL AREA NETWORK SYSTEMS ADMINSTRATOR Temperature 36.6 C (97.8 F) 05/29/2019 10:08 AM LOCAL AREA NETWORK SYSTEMS ADMINSTRATOR Respiratory Rate 18 05/29/2019 10:20 AM LOCAL AREA NETWORK SYSTEMS ADMINSTRATOR Oxygen Saturation 95% 05/29/2019 10:20 AM LOCAL AREA NETWORK SYSTEMS ADMINSTRATOR Inhaled Oxygen Concentration - - Weight 114.3 kg (252 lb) 05/29/2019 9:26 AM LOCAL AREA NETWORK SYSTEMS ADMINSTRATOR Height 188 cm (6' 2 ) 05/29/2019 9:26 AM LOCAL AREA NETWORK SYSTEMS ADMINSTRATOR Body Mass Index 32.35 05/29/2019 9:26 AM LOCAL AREA NETWORK SYSTEMS ADMINSTRATOR Plan of Treatment Health Maintenance Due Date Last Done Comments PNEUMOCOCCAL VACCINE 0-64 YEARS (1 of 2 - PCV) 01/31/1990 HEPATITIS B VACCINES (1 of 3 - 19+ 3-dose series) 01/31/2003 INFLUENZA VACCINE (#1) 2023 , 03/19/2021, 07/24/2020, Additional history exists COVID-19 Vaccine (2023- season) 2023 02/18/2021, 01/15/2021 Preventative Visit- Commercial 04/16/2024 05/20/2018 COLORECTAL SCREENING 05/29/2024 05/29/2019, 05/29/2019, 05/29/2019 DTAP/TDAP/TD VACCINES (4 - Td or Tdap) 03/18/2032 03/18/2022, 02/23/2012, 06/27/2007 HPV VACCINES Aged Out No longer eligi ble based on patient's age to complete this topic Procedures Procedure Name Priority Date/Time Associated Diagnosis Comments COLONOSCOPY REPORT 05/29/2019 10 :08 AM LOCAL AREA NETWORK SYSTEMS ADMINSTRATOR from Last 3 Months or Most Recently Relevant to Health Maintenance Results * COLONOSCOPY REPORT (05/29/2019 10:08 AM LOCAL AREA NETWORK SYSTEMS ADMINSTRATOR) Narrative Procedure Note Can Burger MD - 05/29/2019 10:07 AM CST [facility] Endoscopy [facility] Endoscopy Patient Name: Mainor Burch Procedure Date: 05/29/2019 Date of : 1985 Admit Type: Outpatient Age: 34 Attending MD: Can Burger MD Procedure: Colonoscopy Indications: Colon cancer screening in patient at increased risk: Family history of 1st-degree relative with colon polyps before age 60 years, Colon cancer screening in patient at increased risk: Family history of colorectal cancer in multiple 2nd degree relatives Providers: Can Burger MD Referring MD: Ethan Christiansen MD Medicines: General TIVA Procedure: Informed consent was obtained for the procedure, including moderate sedation after risks were discussed. Based on the pre-procedure assessment, including review of the patient's medical history, medications, allergies, and review of systems, the patient was deemed to be an appropriate candidate for sedation. A timeout was performed. Continuous ECG monitoring, pulse oximetry, blood pressure monitoring, and direct observation were performed. The Colonoscope was introduced through the anus and advanced to the terminal ileum. The colonoscopy was performed without difficulty. The patient tolerated the procedure well. The quality of the bowel preparation was good. Estimated Blood Loss: Estimated blood loss: none. Findings: A diminutive polyp was found in the transverse colon. The polyp was sessile. The polyp was removed with a cold biopsy forceps. Resection and retrieval were complete. A 3 mm polyp was found in the descending colon. The polyp was sessile. The polyp was removed with a cold snare. Resection and retrieval were complete. Internal hemorrhoids were found during retroflexion. The hemorrhoids were mild. Complications: No immediate complications. Estimated blood loss: None. Impression: - One diminutive polyp in the transverse colon, removed with a cold biopsy forceps. Resected and retrieved. - One 3 mm polyp in the descending colon, removed with a cold snare. Resected and retrieved. - Internal hemorrhoids. Recommendation: - Await pathology results. - Repeat colonoscopy in 5 years. Can Burger MD 05/29/2019 10:07:20 AM This report has been signed electronically. Number of Addenda: [phone] [id number] Can Burger MD GI PROCEDURE ORDERABLES Final R esult from Last 3 Months or Most Recently Relevant to Health Maintenance Insurance [facility] [address] [facility] [address] [place] [address] Advance Directives For more information, please contact: [phone] * Full Code (Latest Code Status on File) Date Activated Date Inactivated Comments 05/29/2019 9:32 AM 05/29/2019 12:52 PM Care Teams Iron Caster Relationship Specialty Start Date End Date ЕленаEthan lebron MD [address] [facility] [address] [place] [id number] PCP - General Family Practice 05/20/18
--- OUTSIDE RECORDS SUMMARY | 2024-06-11 13:23 | XMS_ITS | Clinical Summary ---
Author Organization [facility] Address [facility] [place] [address] Care Team Providers Care Portable Power Tool Repairer Name Role Phone None, Provider MD Primary Care Provider Unavaila ble Allergies No known active allergies Medications zolpidem (AMBIEN) 10 MG tablet TAKE 1 TABLET BY MOUTH ONCE DAILY AT BEDTIME NEEDED FOR INSOMNIA 03/06/2022 Active montelukast (SINGULAIR) 10 MG tablet Take 1 tablet (10 mg total) by mouth nightly at bedtime. 30 tablet 06/24/2022 Active Active Problems No known active problems Family History Medical History Relation Comments Cancer Father No Known Problems Mother Relation Status Comments Father Mother Social History Tobacco Use Types Packs/Day Years Used Date Smoking Tobacco: Never Smokeless Tobacco: Never Alcohol Use Standard Drinks/Week Comments Yes 0 (1 standard drink = 0.6 oz pur e alcohol) Sex and Gender Information Value Date Recorded Sex Assigned at Not on file Legal Sex Male 5:44 PM CDT Gender Identity Not on file Sexual Orientation Not on file Last Filed Vital Signs Vital Sign Reading Time Taken Comments Blood Pressure 151/75 06/24/2022 12:43 PM SURGICAL SCHEDULER Pulse 65 06/24/2022 12:43 PM SURGICAL SCHEDULER Temperature 36.4 C (97.5 F) 06/24/2022 12:43 PM SURGICAL SCHEDULER Respiratory Rate 18 06/24/2022 12:43 PM SURGICAL SCHEDULER Oxygen Saturation 99% 06/24/2022 12:43 PM SURGICAL SCHEDULER Inhaled Oxygen Concentration - - Weight 104.3 kg (230 lb) 06/24/2022 12:43 PM SURGICAL SCHEDULER Height 188 cm (6' 2 ) 06/24/2022 12:43 PM SURGICAL SCHEDULER Body Mass Index 29.53 06/24/2022 12:43 PM SURGICAL SCHEDULER Plan of Treatment Health Maintenance Due Date Last Done Comments Annual Physical 01/31/1987 Hepatitis C 01/31/2002 Hepatitis B Vaccines (1 of 3 - 19+ 3-dose series) 01/31/2003 DTaP, Tdap and Td Vaccines ( 2 - Td or Tdap) 06/26/2017 06/27/2007 COVID-19 Vaccine (3 - 2023-2 5 season) 2023 02/18/2021, 01/15/2021 Influenza Adult (#1) 2024 12/15/2018 HPV Vaccines Aged Out No longer eligi ble based on patient's age to complete this topic Meningococcal B Vaccine Aged Out No l onger eligible based on patient's age to complete this topic Meningococcal Vaccine Aged Out No pam isa eligible based on patient's age to complete this topic Pneumococcal Vaccine: Pediatrics (0 to 5 Years) and At-Risk Patients (6 to 64 Years) Aged Out No longer eligible b ased on patient's age to complete this topic RSV Immunizations Under 20 Months Aged Out No longer eligible b ased on patient's age to complete this topic Insurance DR Javi [id number] Care Teams Portable Power Tool Repairer Relationship Specialty Start Date End Date None, Provider, PCP - General UNKNOWN PHYSICIAN SPECIALTY 06/24/22
--- OUTSIDE RECORDS SUMMARY | 2024-06-11 13:23 | XMS_ITS | Patient Health Summary ---
Author Organization [facility] Address [address] [place] [address] Care Team Providers Care Cork Insulation Installer Name Role Phone Melissa Bryant MD Primary Care Provider [phone] Note from [facility],non-owned Affiliates and Associated Physician Practices is amultiple site organization consisting of ambulatory clinics and hospital sitesin [place], [place], [place] and [place]. This disclosure is being madepursuant to the Care Everywhere program and may not contain all information available regarding this patient. Last updated 18.[facility] Allergies No known active allergies Medications * Be aware that medications may not be up to date on this document. Alwaysverify current medications with the patient. * Multiple Vitamins-Minerals (MULTIVITAMIN ADULT PO) Take 1 tablet by mouth once daily * ketoconazole (NIZORAL) 2 % cream(Started 06/26/2017) Apply to affected area 2 times daily 2 refills remaining * naproxen (NAPROSYN) 500 MG tablet(Started 06/26/2017) Take 1 tablet by mouth 2 times daily * terbinafine (LAMISIL) 250 MG tablet(Started 03/28/2018) Take 1 tablet by mouth once daily Active Problems Problem Noted Date Diagnosed Date TMJ (temporomandibular joint disorder) 8 Tinea pedis of both feet 06/26/2017 Immunizations * TDAP (7yrs+)(Given 06/27/2007) Social History Tobacco Use Types Packs/Day Years Used Date Smoking Tobacco: Never Smokeless Tobacco: Never Alcohol Use Standard Drinks/Week Comments Yes 8 (1 standard drink = 0.6 oz pur e alcohol) Sex and Gender Information Value Date Recorded Sex Assigned at Not on file Gender Identity Not on file Sexual Orientation Not on file Last Filed Vital Signs Vital Sign Reading Time Taken Comments Blood Pressure 118/86 03/28/2018 2:02 PM TEA BAG MACHINE TENDER Pulse 66 03/28/2018 2:02 PM TEA BAG MACHINE TENDER Temperature 36.4 C (97.5 F) 06/26/2017 11:21 AM CDT Respiratory Rate - - Oxygen Saturation 97% 03/28/2018 2:02 PM TEA BAG MACHINE TENDER Inhaled Oxygen Concentration - - Weight 114.8 kg (253 lb) 03/28/2018 2:02 PM TEA BAG MACHINE TENDER Height 190.5 cm (6' 3 ) 03/28/2018 2:02 PM TEA BAG MACHINE TENDER Body Mass Index 31.62 03/28/2018 2:02 PM TEA BAG MACHINE TENDER Procedures * CT NECK CHEST W CONTRAST(Performed 04/10/2018) Performed for Hemoptysis * COMPREHENSIVE METABOLIC PANEL(Performed 03/28/2018) Performed for Tinea pedis of both feet Results * CT NECK CHEST W CONTRAST (04/10/2018 3:01 PM TEA BAG MACHINE TENDER) Anatomical Region Laterality Modality Head, Chest Computed Tomogra phy 04/10/2018 3:06 PM TEA BAG MACHINE TENDER Impressions 04/10/2018 4:09 PM TEA BAG MACHINE TENDER No evidence of focal enhancing lesions of the neck or lymphadenopathy. Patent airway. Patchy area of apparent airspace disease of the superior segment of the right lower lobe, with a central cavitary lesion, that could represent a cavitary pneumonia, less likely tumor. Atypical fungal or mycobacterial pneumonia is in the differential diagnosis. Sputum analysis and Follow up after full course of antibiotics is completed should be performed. Reading Radiologist: Fanta Worley MD on 04/10/2018 at 4:09 PM Narrative 04/10/2018 4:09 [address] B[address] MACHINE TENDER CT neck with contrast: HISTORY: 33-year-old coughing up bright red blood for last 2 months.. Patient was diagnosed with pneumonia in January 2018, given antibiotics. Chest tightness and wheezing. TECHNIQUE: CT examination of the neck was performed on 04/10/2018 following IV contrast. 90 cc of intravenous Isovue-370 were administered sagittal and coronal reconstructions were also obtained. COMPARISON: None FINDINGS: Neck CT: There is mild streaky artifact from dental work. There are no focal enhancing lesions or lymphadenopathy. The visualized fat planes are unremarkable. The parotid and submandibular glands, floor of the mouth muscles, vallecula, epiglottis, preepiglottic fat, aryepiglottic folds, piriform sinuses and visualized portions of the vocal cords appear unremarkable. The airways patent. There is a ring of calcification of approximately 1 cm in the left thyroid lobe. The vasculature of the neck shows no evidence of obstruction. The trachea is essentially midline with no intraluminal mass. The visualized portions of the paranasal sinuses and mastoid cells are unremarkable. Chest CT: There is a small patchy area of increased density of the superior segment of the right lower lobe, possibly pneumonia, with the central more consolidated area 1.6 cm, and central cavity. There is minimal left lower lobe posterior dependent atelectasis. There is no pleural effusion or pneumothorax. The central airways are patent bilaterally. There is no mediastinal or axillary lymphadenopathy. The heart is is normal. There is no pericardial effusion. There is no aneurysmal dilation of the aorta. There is a small hiatal hernia. The limited images of the upper abdomen demonstrate mild diffuse fatty infiltration of the liver. There is no abnormal distention of the gallbladder. Procedure Note Fanta Worley MD - 04/10/2018 CT neck with contrast: HISTORY: 33-year-old coughing up bright red blood for last 2 months.. Patient was diagnosed with pneumonia in January 2018, given antibiotics. Chest tightness and wheezing. TECHNIQUE: CT examination of the neck was performed on 04/10/2018 following IV contrast. 90 cc of intravenous Isovue-370 were administered sagittal and coronal reconstructions were also obtained. COMPARISON: None FINDINGS: Neck CT: There is mild streaky artifact from dental work. There are no focal enhancing lesions or lymphadenopathy. The visualized fat planes are unremarkable. The parotid and submandibular glands, floor of the mouth muscles, vallecula, epiglottis, preepiglottic fat, aryepiglottic folds, piriform sinuses and visualized portions of the vocal cords appear unremarkable. The airways patent. There is a ring of calcification of approximately 1 cm in the left thyroid lobe. The vasculature of the neck shows no evidence of obstruction. The trachea is essentially midline with no intraluminal mass. The visualized portions of the paranasal sinuses and mastoid cells are unremarkable. Chest CT: There is a small patchy area of increased density of the superior segment of the right lower lobe, possibly pneumonia, with the central more consolidated area 1.6 cm, and central cavity. There is minimal left lower lobe posterior dependent atelectasis. There is no pleural effusion or pneumothorax. The central airways are patent bilaterally. There is no mediastinal or axillary lymphadenopathy. The heart is is normal. There is no pericardial effusion. There is no aneurysmal dilation of the aorta. There is a small hiatal hernia. The limited images of the upper abdomen demonstrate mild diffuse fatty infiltration of the liver. There is no abnormal distention of the gallbladder. IMPRESSION No evidence of focal enhancing lesions of the neck or lymphadenopathy. Patent airway. Patchy area of apparent airspace disease of the superior segment of the right lower lobe, with a central cavitary lesion, that could represent a cavitary pneumonia, less likely tumor. Atypical fungal or mycobacterial pneumonia is in the differential diagnosis. Sputum analysis and Follow up after full course of antibiotics is completed should be performed. Reading Radiologist: Fanta Worley MD on 04/10/2018 at 4:09 PM Mark Guadarrama MD CT ORDERABLES * COMPREHENSIVE METABOLIC PANEL (03/28/2018 2:47 PM TEA BAG MACHINE TENDER) Glucose 88 74 - 106 mg/dL [facility] INSURANCE BILL BUN 21 7 - 21 mg/dL [facility] INSURANCE BILL Creatinine 1.10 0.50 - 1.30 mg/dL [facility] INSURANCE BILL eGFR by MDRD >60 >60 mL/min/1.7 3m2 [facility] INSURANCE BILL eGFR by MDRD >60 >60 mL/min/1.7 3m2 [facility] INSURANCE BILL Sodium 137 136 - 145 mmol/L [facility] INSURANCE BILL Potassium 4.7 3.5 - 5.1 mmol/L [facility] INSURANCE BILL Chloride 104 98 - 107 mmol/L [facility] INSURANCE BILL CO2 28 22 - 31 mmol/L [facility] INSURANCE BILL Calcium 9.1 8.5 - 10.1 mg/dL [facility] INSURANCE BILL Protein Total 7.5 6.4 - 8.2 gm/dL [facility] INSURANCE BILL Albumin 4.2 3.4 - 5.0 gm/dL [facility] INSURANCE BILL Bilirubin Total 0.6 0.2 - 1.0 mg/dL [facility] INSURANCE BILL Alkaline Phosphatase 70 38 - 126 U/L [facility] INSURANCE BILL AST 20 5 - 40 U/L [facility] INSURANCE BILL ALT 48 13 - 61 U/L [facility] INSURANCE BILL Blood BLOOD SPECIMEN / Unknown 03/28/2018 2:47 PM TEA BAG MACHINE TENDER 03/28/2018 Narrative Resulting Agency Comment [facility] [address] [place] [id number] Melissa Bryant MD LAB - CHEMISTRY HIEU SPICER [facility] Organization Address City/State/ZIP Co de Phone Number [facility] INSURANCE BILL [address] [place] [address] Care Teams Cork Insulation Installer Relationship Specialty Start Date End Date Melissa Bryant MD [address] [facility] [address] [place] [phone] PCP - General Family Medicine 06/26/17
--- OUTSIDE RECORDS SUMMARY | 2024-06-11 13:23 | XMS_ITS | Clinical Summary ---
Author Organization [facility] Address [address] [place] [address] Care Team Providers Care [employer] Assistant Football Coach Name Role Phone Melissa Bryant MD Primary Care Provider [phone] [facility],non-owned Affiliates and Associated Physician Practices is amultiple site organization consisting of ambulatory clinics and hospital sitesin [place], [place], [place] and [place]. This disclosure is being madepursuant to the Care Everywhere program and may not contain all information available regarding this patient. Last updated 18.[facility] Allergies No known active allergies Medications * Be aware that medications may not be up to date on this document. Alwaysverify current medications with the patient. Medication Sig Dispensed Refills Start Date End Date Status Multiple Vitamins-Minerals (MULTIVITAMIN ADULT PO) Take 1 tablet by mouth once daily Active ketoconazole (NIZORAL) 2 % creamIndications:Ti eugenia pedis of both feet Apply to affected area 2 times daily 60 g 2 06/26/2017 Active Additional Information Patient not taking.Reported on 03/28/2018 naproxen (NAPROSYN) 500 MG tabletIndications:T MJ (temporomandibular joint disorder) Take 1 tablet by mouth 2 times daily 60 tablet 06/26/2017 Active terbinafine (LAMISIL) 250 MG tabletIndications:T inea pedis of both feet Take 1 tablet by mouth once daily 30 tablet 03/28/2018 Active Active Problems Problem Noted Date Diagnosed Date TMJ (temporomandibular joint disorder) 8 Tinea pedis of both feet 06/26/2017 Immunizations Name Administration Dates Next Due TDAP (7yrs+) 06/27/2007 Family History Medical History Relation Name Comments Cancer - Colon Paternal Grandmother Cancer - Colon Paternal Uncle Relation Name Status Comments Father Alive Mother Alive Paternal Grandmother Paternal Uncle Social History Tobacco Use Types Packs/Day Years [...] Comments Blood Pressure 118/86 03/28/2018 2:02 PM DIRECTOR MERIT SYSTEM Pulse 66 03/28/2018 2:02 PM DIRECTOR MERIT SYSTEM Temperature 36.4 C (97.5 F) 06/26/2017 11:21 AM CDT Respiratory Rate - - Oxygen Saturation 97% 03/28/2018 2:02 PM DIRECTOR MERIT SYSTEM Inhaled Oxygen Concentration - - Weight 114.8 kg (253 lb) 03/28/2018 2:02 PM DIRECTOR MERIT SYSTEM Height 190.5 cm (6' 3 ) 03/28/2018 2:02 PM DIRECTOR MERIT SYSTEM Body Mass Index 31.62 03/28/2018 2:02 PM DIRECTOR MERIT SYSTEM Plan of Treatment Health Maintenance Due Date Last Done Comments LIPID TESTING 1985 HIV SCREENING 01/31/1999 HEPATITIS C SCREENING 01/27/2002 HEPATITIS B VACCINE (1 of 3 - 19+ 3-dose series) 01/31/2003 DTAP/TDAP/TD VACCINES (2 - Td or Tdap) 06/26/2017 06/27/2007 COVID-19 VACCINE (2023- season) 2023 INFLUENZA VACCINE (#1) 2023 7, 01/17/2016, 01/16/2015, Additional history exists DEPRESSION SCREENING 04/16/2024 ZOSTER VACCINE (1 of 2) 01/31/2034 HIB VACCINE Aged Out No longer eligi ble based on patient's age to complete this topic HPV VACCINE Aged Out No longer eligi ble based on patient's age to complete this topic MENINGOCOCCAL (Group B) VACCINE Aged Out No longer eligible based on patient's age to complete this topic MENINGOCOCCAL VACCINE Aged Out No pam isa eligible based on patient's age to complete this topic PNEUMOCOCCAL VACCINE Aged Out No long er eligible based on patient's age to complete this topic Care Teams High School Assistant Football Coach Relationship Specialty Start Date End Date Melissa Bryant MD [address] [place] [address] PCP - General Family Medicine 06/26/17
--- OUTSIDE RECORDS SUMMARY | 2024-06-11 13:23 | XMS_ITS | Referral Summary ---
Author Organization [email or web address] Address [address] [place] [address] Care Team Providers Care Blast Furnace Operator Name Role Phone Melissa Bryant MD Primary Care Provider [phone] Source Comments [email or web address],non-owned Affiliates and Associated Physician Practices is amultiple site organization consisting of ambulatory clinics and hospital sitesin [place], [place], [place] and [place]. This disclosure is being madepursuant to the Care Everywhere program and may not contain all information available regarding this patient. Last updated 18.[email or web address] Allergies No known active allergies Medications * [...] Administration Dates Next Due TDAP (7yrs+) 06/27/2007 Social History Tobacco Use Types Packs/Day Years [...] Comments Blood Pressure 118/86 03/28/2018 2:02 PM INSTRUCTOR MODELING Pulse 66 03/28/2018 2:02 PM INSTRUCTOR MODELING Temperature 36.4 C (97.5 F) 06/26/2017 11:21 AM CDT Respiratory Rate - - Oxygen Saturation 97% 03/28/2018 2:02 PM INSTRUCTOR MODELING Inhaled Oxygen Concentration - - Weight 114.8 kg (253 lb) 03/28/2018 2:02 PM INSTRUCTOR MODELING Height 190.5 cm (6' 3 ) 03/28/2018 2:02 PM INSTRUCTOR MODELING Body Mass Index 31.62 03/28/2018 2:02 PM INSTRUCTOR MODELING Plan of Treatment Not on file Care Teams Blast Furnace Operator Relationship Specialty Start Date End Date Melissa Bryant MD [address] [facility] [address] [place] [address] PCP - General Family Medicine 06/26/17
== END 2024-06-11 11:26 | disposition home or self-care (01) ==
PROVIDERS: Visit Provider Internal Medicine
DX: E04.2 Nontoxic multinodular goiter (principal)
CPT/HCPCS: 76536

== ENCOUNTER 2024-08-29 08:54 | Outpatient (CLI) | payer BC, SELFPAY ==
--- NOTE | 2024-08-29 09:01 | EST_ITS ---
Patient Info Name: Mainor Burch Age: 39 years : 1985 Gender: Male Ht: 73 in Wt: 230 lbs BSA: 2.34 m2 HR: 58 bpm BP: 116 / 72 mmHg Exam Date: 08/29/2024 9:01 AM Patient Status: O Admit Date: 08/29/2024 Exam Type: CA stress test treadmill A treadmill exercise stress test was performed. Staff Attending Provider: Rosy Hernandez Exercise Technologist: Pearl Tang Exercise Physician: Altaf Wright DO Summary 1. 1. Negative [place] exercise stress test for ischemic ST changes by ECG criteria. 2. 2. Good functional capacity, achieving 13.9 METs of workload. 3. 3. Appropriate HR response to exercise. 4. 4. Appropriate HR recovery at 1 minute post exercise. 5. 5. No imaging with stress testing. 6. 6. Patient informed of the above results. Protocol: [place] Stress ECG Details Stage: REST Duration (min): 1 min : 2 sec Speed (mph): 0.0 Grade (%): 0 HR (bpm): 58 SBP (mmHg): 116 DBP (mmHg): 72 METS: --- Stage: REST Duration (min): 3 min : 18 sec Speed (mph): 0.0 Grade (%): 0 HR (bpm): 70 SBP (mmHg): 116 DBP (mmHg): 72 METS: --- Stage: STAGE 1 Duration (min): 1 min : 0 sec Speed (mph): 1.7 Grade (%): 10 HR (bpm): 91 SBP (mmHg): 116 DBP (mmHg): 72 METS: --- Stage: STAGE 1 Duration (min): 2 min : 0 sec Speed (mph): 1.7 Grade (%): 10 HR (bpm): 95 SBP (mmHg): 116 DBP (mmHg): 72 METS: --- Stage: STAGE 1 Duration (min): 3 min : 0 sec Speed (mph): 1.7 Grade (%): 10 HR (bpm): 94 SBP (mmHg): 142 DBP (mmHg): 69 METS: --- Stage: STAGE 2 Duration (min): 1 min : 0 sec Speed (mph): 2.5 Grade (%): 12 HR (bpm): 103 SBP (mmHg): 142 DBP (mmHg): 69 METS: --- Stage: STAGE 2 Duration (min): 2 min : 0 sec Speed (mph): 2.5 Grade (%): 12 HR (bpm): 102 SBP (mmHg): 126 DBP (mmHg): 64 METS: --- Stage: STAGE 2 Duration (min): 3 min : 0 sec Speed (mph): 2.5 Grade (%): 12 HR (bpm): 109 SBP (mmHg): 126 DBP (mmHg): 64 METS: --- Stage: STAGE 3 Duration (min): 1 min : 0 sec Speed (mph): 3.4 Grade (%): 14 HR (bpm): 120 SBP (mmHg): 149 DBP (mmHg): 94 METS: --- Stage: STAGE 3 Duration (min): 2 min : 0 sec Speed (mph): 3.4 Grade (%): 14 HR (bpm): 125 SBP (mmHg): 149 DBP (mmHg): 94 METS: --- Stage: STAGE 3 Duration (min): 3 min : 0 sec Speed (mph): 3.4 Grade (%): 14 HR (bpm): 130 SBP (mmHg): 168 DBP (mmHg): 71 METS: --- Stage: STAGE 4 Duration (min): 1 min : 0 sec Speed (mph): 4.2 Grade (%): 16 HR (bpm): 141 SBP (mmHg): 168 DBP (mmHg): 71 METS: --- Stage: STAGE 4 Duration (min): 2 min : 0 sec Speed (mph): 4.2 Grade (%): 16 HR (bpm): 146 SBP (mmHg): 172 DBP (mmHg): 73 METS: --- Stage: STAGE 4 Duration (min): 3 min : 0 sec Speed (mph): 4.2 Grade (%): 16 HR (bpm): 151 SBP (mmHg): 172 DBP (mmHg): 73 METS: --- Stage: STAGE 5 Duration (min): 1 min : 0 sec Speed (mph): 5.0 Grade (%): 18 HR (bpm): 165 SBP (mmHg): 149 DBP (mmHg): 70 METS: --- Stage: STAGE 5 Duration (min): 1 min : 0 sec Speed (mph): 5.0 Grade (%): 18 HR (bpm): 166 SBP (mmHg): 149 DBP (mmHg): 70 METS: --- Stage: RECOVERY Duration (min): 0 min : 59 sec Speed (mph): 0.0 Grade (%): 0 HR (bpm): 142 SBP (mmHg): 149 DBP (mmHg): 70 METS: --- Stage: RECOVERY Duration (min): 1 min : 59 sec Speed (mph): 0.0 Grade (%): 0 HR (bpm): 104 SBP (mmHg): 149 DBP (mmHg): 70 METS: --- Stage: RECOVERY Duration (min): 2 min : 59 sec Speed (mph): 0.0 Grade (%): 0 HR (bpm): 106 SBP (mmHg): 120 DBP (mmHg): 84 METS: --- Stage: RECOVERY Duration (min): 3 min : 19 sec Speed (mph): 0.0 Grade (%): 0 HR (bpm): 96 SBP (mmHg): 120 DBP (mmHg): 84 METS: --- Rest HR: 70 bpm Peak HR: 165 bpm Rest Sys BP: 116 mmHg Peak Sys BP: 172 mmHg Max Pred HR: 180 bpm % Max Pred HR: 92 % Target HR: 153 bpm Max RPP: 28,380 bpm*mmHg Sterling Score: -1 Termination Reason: Reached target heart rate or workload Cardiac Symptoms: Shortness of breath Max ST Seg Deviation: 2.70 mm Total Time: 13 min : 0 sec Rest Bates BP: 72 mmHg Peak Bates BP: 73 mmHg Angina Score: None Total METS: 13.9 Resting ECG Sinus rhythm. Stress ECG No ST changes. Arrhythmias None. Report Signatures
--- OUTSIDE RECORDS SUMMARY | 2024-08-29 09:07 | XMS_ITS | Clinical Summary ---
Author Organization [facility] Address [address] [address] Care Team Providers Care Manager Action Name Role Phone Melissa Bryant MD Primary Care Provider [phone] Source Comments [facility],non-owned Affiliates and Associated Physician Practices is amultiple site organization consisting of ambulatory clinics and hospital sitesin [place], [place], [place] and [place]. This disclosure is being madepursuant to the Care Everywhere program and may not contain all information available regarding this patient. Last updated 18.[facility] Allergies No known active allergies Medications * Be aware that medications may not be up to date on this document. Alwaysverify current medications with the patient. Multiple Vitamins-Minera ls (MULTIVITAMIN ADULT PO) Take 1 tablet by mouth once daily Active ketoconazole (NIZORAL) 2 % creamIndication s:Tinea pedis of both feet Apply to affected area 2 times daily 60 g 2 8 Active Additional Information Patient not taking.Reported on 03/28/2018 naproxen (NAPROSYN) 500 MG tabletIndicatio ns:TMJ (temporomandibu lar joint disorder) Take 1 tablet by mouth 2 times daily 60 tablet 8 Active terbinafine (LAMISIL) 250 MG tabletIndicatio ns:Tinea pedis of both feet Take 1 tablet by mouth once daily 30 tablet 8 Active Active Problems Problem Noted Date Diagnosed Date TMJ (temporomandibular joint disorder) 03/13/201 8 Tinea pedis of both feet 06/26/2017 Immunizations Immunization Administration Dates Next Due TDAP (7yrs+) 06/27/2007 [...] at Not on file Legal Sex Male 3:47 PM BRADLEY LINEBACKER CREWMEMBER Gender Identity Not on file Sexual Orientation Not on file Last Filed Vital Signs Vital Sign Reading Time Taken Comments Blood Pressure 118/86 03/28/2018 2:02 PM BRADLEY LINEBACKER CREWMEMBER Pulse 66 03/28/2018 2:02 PM BRADLEY LINEBACKER CREWMEMBER Temperature 36.4 C (97.5 F) 06/26/2017 11:21 AM CDT Respiratory Rate - - Oxygen Saturation 97% 03/28/2018 2:02 PM BRADLEY LINEBACKER CREWMEMBER Inhaled Oxygen Concentration - - Weight 114.8 kg (253 lb) 03/28/2018 2:02 PM BRADLEY LINEBACKER CREWMEMBER Height 190.5 cm (6' 3 ) 03/28/2018 2:02 PM BRADLEY LINEBACKER CREWMEMBER Body Mass Index 31.62 03/28/2018 2:02 PM BRADLEY LINEBACKER CREWMEMBER Plan of Treatment Health Maintenance Due Date Last Done Comments LIPID TESTING 1985 HIV SCREENING 01/31/1999 HEPATITIS C SCREENING 01/27/2002 HEPATITIS B VACCINE (1 of 3 - 19+ 3-dose series) 01/31/2003 DTAP/TDAP/TD VACCINES (2 - Td or Tdap) 06/26/2017 06/27/2007 COVID-19 VACCINE ( - 2023- season) 2023 DEPRESSION SCREENING 04/16/2024 INFLUENZA VACCINE (Season Ended) 2024 01/23/2017, 01/17/2016, 01/16/2015, Additional history exists ZOSTER VACCINE (1 of 2) 01/31/2034 HIB VACCINE Aged Out No longer eligi ble based on patient's age to complete this topic HPV VACCINE Aged Out No longer eligi ble based on patient's age to complete this topic MENINGOCOCCAL (Group B) VACCINE SHARED DECISION-MAKING Aged Out No longer eligible based on patient's age to complete this topic MENINGOCOCCAL GROUPS A/C/Y/W VACCINE Aged Out No longer eligible based on patient's age to complete this topic PNEUMOCOCCAL VACCINE Aged Out No long er eligible based on patient's age to complete this topic Insurance ANTH Care Teams Manager Action Relationship Specialty Start Date End Date Melissa Bryant MD [address] [facility] [address] [place] [phone] PCP - General Family Medicine 06/26/17
--- OUTSIDE RECORDS SUMMARY | 2024-08-29 09:07 | XMS_ITS | Clinical Summary ---
Author Organization [facility] Address [address] [place] [address] Care Team Providers Care Ambulance Dispatcher Name Role Phone Елена, Ethan Luevano MD Primary Care Provider Allergies No known active allergies Medications multivitamin (DAILY-CLINT) tablet Take 1 Tablet by mouth daily. Active omeprazole (PriLOSEC) 20 mg Capsule, Delayed Release(E.C.) Take 1 Capsule (20 mg) by mouth daily. 90 Capsule 4 0 Active fluticasone propionate (FLONASE) 50 mcg/spray [place], Suspension nasal inhaler Administer 2 Sprays in [...] on file Legal Sex Male 3:04 PM REGIONAL OPERATIONS DIRECTOR Gender Identity Not on file Sexual Orientation Not on file Last Filed Vital Signs Vital Sign Reading Time Taken Comments Blood Pressure 123/82 05/29/2019 10:20 AM REGIONAL OPERATIONS DIRECTOR Pulse 139 05/29/2019 10:20 AM REGIONAL OPERATIONS DIRECTOR Temperature 36.6 C (97.8 F) 05/29/2019 10:08 AM REGIONAL OPERATIONS DIRECTOR Respiratory Rate 18 05/29/2019 10:20 AM REGIONAL OPERATIONS DIRECTOR Oxygen Saturation 95% 05/29/2019 10:20 AM REGIONAL OPERATIONS DIRECTOR Inhaled Oxygen Concentration - - Weight 114.3 kg (252 lb) 05/29/2019 9:26 AM REGIONAL OPERATIONS DIRECTOR Height 188 cm (6' 2 ) 05/29/2019 9:26 AM REGIONAL OPERATIONS DIRECTOR Body Mass Index 32.35 05/29/2019 9:26 AM REGIONAL OPERATIONS DIRECTOR Plan of Treatment Health Maintenance Due Date Last Done Comments HEPATITIS B VACCINES (1 of 3 - 19+ 3-dose series) 01/31/2003 INFLUENZA VACCINE (#1) 2023 2, 03/19/2021, 07/24/2020, Additional history exists COVID-19 Vaccine ( season) 2023 02/18/2021, 01/15/2021 Preventative Visit- Commercial 04/16/2024 05/20/2018 COLORECTAL SCREENING 05/29/2024 05/29/2019, 05/29/2019, 05/29/2019 DTAP/TDAP/TD VACCINES (4 - Td or Tdap) 03/18/2032 03/18/2022, 02/23/2012, 06/27/2007 HPV VACCINES Aged Out No longer eligi ble based on patient's age to complete this topic Procedures Procedure Name Priority Date/Time Associated Diagnosis Comments COLONOSCOPY REPORT 05/29/2019 10 :08 AM REGIONAL OPERATIONS DIRECTOR from Last 3 Months or Most Recently Relevant to Health Maintenance Results * COLONOSCOPY REPORT (05/29/2019 10:08 AM REGIONAL OPERATIONS DIRECTOR) Narrative Procedure Note Can Burger MD - 05/29/2019 10:07 AM CST [facility] Patient Name: Mainor Burch Procedure Date: [...] signed electronically. Number of Addenda: [phone] [address] Can Burger MD GI PROCEDURE ORDERABLES Final R esult from Last 3 Months or Most Recently Relevant to Health Maintenance Insurance [facility] [address] [place] [address] Advance Directives For more information, please contact: [phone] * Full Code (Latest Code Status on File) Date Activated Date Inactivated Comments 05/29/2019 9:32 AM 05/29/2019 12:52 PM Care Teams Ambulance Dispatcher Relationship Specialty Start Date End Date ЕленаEthan MD [address] [facility] [address] [place] [id number] PCP - General Family Practice 05/20/18
--- NOTE | 2024-09-05 12:51 | WPDHOLTEREM ---
Holter/Event Monitor Holter/Event Monitor Date of procedure: 08/29/24 Holter/Event Procedure: 3-7 Day Holter Monitor Indications: Chest pain Conclusion: 1. 3 days holter monitor on 08/29/24. 2. Underlying rhythm is sinus rhythm. HR range 44-153 bpm; average HR 74 bpm. HR at 44 bpm was on 09/01/24 at 4:55 am. HR at 153 bpm was on 08/30/24 at 9:59 am. 3. There are rare premature supraventricular complexes. No supraventricular tachycardia. 4. There are rare premature ventricular complexes, rare ventricular couplets, and rare ventricular triplets. No ventricular tachycardia. 5. No significant pauses greater than 3 seconds. 6. No symptoms available for correlation.
== END 2024-08-29 08:55 | disposition home or self-care (01) ==
PROVIDERS: PCP Family Medicine; Visit Provider Physician Assistant Medical
DX: I49.1 Atrial premature depolarization (principal); I49.3 Ventricular premature depolarization; R07.89 Other chest pain; R00.2 Palpitations
CPT/HCPCS: 93017; 93242

== ENCOUNTER 2024-10-24 00:33 | Day surgery (SDC) | payer BC, SELFPAY ==
[2024-08-06 12:50] VITALS: BMI 29.7
[2024-10-07 11:16] VITALS: BMI 29.7
--- NOTE | 2024-10-07 11:18 | PC.NURSE ---
Spoke with pt. Pt states that nothing has changed with medical history or medications since August 06, 2024.
--- OUTSIDE RECORDS SUMMARY | 2024-10-24 00:35 | XMS_ITS | Clinical Summary ---
Author Organization [facility] Address [address] [place] [address] Care Team Providers Care Rehab Manager Name Role Phone Елена, Ethan Luevano MD Primary Care Provider [phone] Allergies No known active allergies Medications multivitamin (DAILY-CLINT) tablet Take 1 Tablet by mouth daily. Active omeprazole (PriLOSEC) 20 mg Capsule, Delayed Release(E.C.) Take 1 Capsule (20 mg) by mouth daily. 90 Capsule 4 0 Active fluticasone propionate (FLONASE) 50 mcg/spray [place], Suspension nasal inhaler Administer 2 Sprays in [...] on file Legal Sex Male 3:04 PM MOTION PICTURE SCENE BUILDER Gender Identity Not on file Sexual Orientation Not on file Last Filed Vital Signs Vital Sign Reading Time Taken Comments Blood Pressure 123/82 05/29/2019 10:20 AM MOTION PICTURE SCENE BUILDER Pulse 139 05/29/2019 10:20 AM MOTION PICTURE SCENE BUILDER Temperature 36.6 C (97.8 F) 05/29/2019 10:08 AM MOTION PICTURE SCENE BUILDER Respiratory Rate 18 05/29/2019 10:20 AM MOTION PICTURE SCENE BUILDER Oxygen Saturation 95% 05/29/2019 10:20 AM MOTION PICTURE SCENE BUILDER Inhaled Oxygen Concentration - - Weight 114.3 kg (252 lb) 05/29/2019 9:26 AM MOTION PICTURE SCENE BUILDER Height 188 cm (6' 2) 05/29/2019 9:26 AM MOTION PICTURE SCENE BUILDER Body Mass Index 32.35 05/29/2019 9:26 AM MOTION PICTURE SCENE BUILDER Plan of Treatment Health Maintenance Due Date Last Done Comments HEPATITIS B VACCINES (1 of 3 - 19+ 3-dose series) 01/31/2003 COVID-19 Vaccine (3 - 2023- season) 2023 02/18/2021, 01/15/2021 Preventative Visit- Commercial 04/16/2024 05/20/2018 COLORECTAL SCREENING 05/29/2024 05/29/2019, 05/29/2019, 05/29/2019 INFLUENZA VACCINE (#1) 2024 , 03/19/2021, 07/24/2020, Additional history exists DTAP/TDAP/TD VACCINES (4 - Td or Tdap) 03/18/2032 03/18/2022, 02/23/2012, 06/27/2007 HPV VACCINES Aged Out No longer eligi ble based on patient's age to complete this topic Procedures Procedure Name Priority Date/Time Associated Diagnosis Comments COLONOSCOPY REPORT 05/29/2019 10 :08 AM MOTION PICTURE SCENE BUILDER from Last 3 Months or Most Recently Relevant to Health Maintenance Results * COLONOSCOPY REPORT (05/29/2019 10:08 AM MOTION PICTURE SCENE BUILDER) Narrative Procedure Note Can Burger MD - 05/29/2019 10:07 AM CST [facility] Patient Name: Mainor Burch Procedure Date: [...] signed electronically. Number of Addenda: [phone] [address] Can Burger MD GI PROCEDURE ORDERABLES Final R esult from Last 3 Months or Most Recently Relevant to Health Maintenance Insurance [facility] [address] [place] [address] Advance Directives For more information, please contact: [phone] * Full Code (Latest Code Status on File) Date Activated Date Inactivated Comments 05/29/2019 9:32 AM 05/29/2019 12:52 PM Care Teams Rehab Manager Relationship Specialty Start Date End Date ЕленаEthan MD [address] [facility] [address] [place] [phone] PCP - General Family Practice 05/20/18
--- OUTSIDE RECORDS SUMMARY | 2024-10-24 00:35 | XMS_ITS | Clinical Summary ---
Author Organization [facility] Address Formerly [facility] [place] [address] Care Team Providers Care Cisco Certified Network Professional Name Role Phone None, Provider MD Primary [...] Comments Blood Pressure 151/75 06/24/2022 12:43 PM GROUND OPERATIONS SUPERINTENDENT Pulse 65 06/24/2022 12:43 PM GROUND OPERATIONS SUPERINTENDENT Temperature 36.4 C (97.5 F) 06/24/2022 12:43 PM GROUND OPERATIONS SUPERINTENDENT Respiratory Rate 18 06/24/2022 12:43 PM GROUND OPERATIONS SUPERINTENDENT Oxygen Saturation 99% 06/24/2022 12:43 PM GROUND OPERATIONS SUPERINTENDENT Inhaled Oxygen Concentration - - Weight 104.3 kg (230 lb) 06/24/2022 12:43 PM GROUND OPERATIONS SUPERINTENDENT Height 188 cm (6' 2) 06/24/2022 12:43 PM GROUND OPERATIONS SUPERINTENDENT Body Mass Index 29.53 06/24/2022 12:43 PM GROUND OPERATIONS SUPERINTENDENT Plan of Treatment Health Maintenance Due Date Last Done Comments Annual Physical 01/31/1987 Hepatitis C 01/31/2002 Hepatitis B Vaccines (1 of 3 - 19+ 3-dose series) 01/31/2003 DTaP, Tdap and Td Vaccines ( 2 - Td or Tdap) 06/26/2017 06/27/2007 COVID-19 Vaccine (3 - 2023-2 5 season) 2023 02/18/2021, 01/15/2021 HPV Vaccines Aged Out No longer eligi ble based on patient's age to complete this topic Meningococcal B Vaccine Aged Out No l onger eligible based on patient's age to complete this topic Meningococcal Vaccine Aged Out No pam isa eligible based on patient's age to complete this topic Pneumococcal Vaccine: Pediatrics (0 to 5 Years) and At-Risk Patients (6 to 49 Years) Aged Out No longer eligible b ased on patient's age to complete this topic RSV Immunizations Under 20 Months Aged Out No longer eligible b ased on patient's age to complete this topic Insurance DR [address]avi [id number] Care Teams Cisco Certified Network Professional Relationship Specialty Start Date End Date None, Provider, PCP - General UNKNOWN PHYSICIAN SPECIALTY 06/24/22
--- OUTSIDE RECORDS SUMMARY | 2024-10-24 00:35 | XMS_ITS | Clinical Summary ---
Author Organization [email or web address] Address [address] [place] [id number] Care Team Providers Care Clay Caster Name Role Phone Melissa Bryant MD Primary Care Provider [phone] Source Comments [email or web address],non-owned Affiliates and Associated Physician Practices is amultiple site organization consisting of ambulatory clinics and hospital sitesin [place], [place] and [place]. This disclosure is being madepursuant to the Care Everywhere program and may not contain all information available regarding this patient. Last updated 18.[email or web address] Allergies No known active allergies Medications * [...] on file Legal Sex Male 3:47 PM SOURCING ASSISTANT Gender Identity Not on file Sexual Orientation Not on file Last Filed Vital Signs Vital Sign Reading Time Taken Comments Blood Pressure 118/86 03/28/2018 2:02 PM SOURCING ASSISTANT Pulse 66 03/28/2018 2:02 PM SOURCING ASSISTANT Temperature 36.4 C (97.5 F) 06/26/2017 11:21 AM CDT Respiratory Rate - - Oxygen Saturation 97% 03/28/2018 2:02 PM SOURCING ASSISTANT Inhaled Oxygen Concentration - - Weight 114.8 kg (253 lb) 03/28/2018 2:02 PM SOURCING ASSISTANT Height 190.5 cm (6' 3) 03/28/2018 2:02 PM SOURCING ASSISTANT Body Mass Index 31.62 03/28/2018 2:02 PM SOURCING ASSISTANT Plan of Treatment Health Maintenance Due Date Last Done Comments LIPID TESTING 1985 HIV SCREENING 01/31/1999 HEPATITIS C SCREENING 01/27/2002 HEPATITIS B VACCINE (1 of 3 - 19+ 3-dose series) 01/31/2003 DTAP/TDAP/TD VACCINES (2 - Td or Tdap) 06/26/2017 06/27/2007 COVID-19 VACCINE ( - 2023- season) 2023 DEPRESSION SCREENING 04/16/2024 INFLUENZA VACCINE (#1) 2024 7, 01/17/2016, 01/16/2015, Additional history exists ZOSTER VACCINE [...] complete this topic Insurance ANTH Care Teams Clay Caster Relationship Specialty Start Date End Date Melissa Bryant MD [address] [facility] [address] [place] [id number] PCP - General Family Medicine 06/26/17
[2024-10-24 09:08] VITALS: BP 126/81; PULSE 61; RESP 18; TEMP 36.1; O2SAT 99
[2024-10-24] MEDS: LACTATED RINGERS 1,000 ML 150 ML IV CONT (09:17)
--- NOTE | 2024-10-24 09:28 | WPDANESEPPF ---
Anes - Initial Pre Proc Eval Procedure: Operation Date: 10/24/24 09:45 Proposed Procedures p Esophagogastroduodenoscopy EGD - Sidney Collado MD Date/Time: 10/24/24 09:28 Surgeon: Sidney Collado MD Pre Op Diagnosis: GERD Patient Data Age: 39 Gender: M Height: 1.88 m Weight: 103.5 kg Last Vital Signs Temp 36.1 C L 10/24/24 09:08 Pulse 61 10/24/24 09:08 Resp 18 10/24/24 09:08 BP 126/81 10/24/24 09:08 Pulse Ox 99 10/24/24 09:08 O2 Del Method Room Air 10/24/24 09:08 Allergies Allergy/AdvReac Type Severity Reaction Status Date / Time No Known Allergies Allergy Verified 10/24/24 09:07 Home Medications ?Medication ?Instructions ?Recorded ?Confirmed ?Type multivitamin 1 tablet PO DAILY 02/27/22 10/24/24 History glucosamine HCl 500 mg tablet 500 mg PO DAILY 08/02/22 10/24/24 History mupirocin 2 % topical ointment 1 applic topical BID #22 grams 06/25/23 10/24/24 Rx modafinil 200 mg tablet 200 mg PO QAM #30 tabs 03/07/24 10/24/24 Rx zolpidem 10 mg tablet (Ambien) 10 mg PO QHS PRN insomnia #30 tabs 05/21/24 10/16/24 Rx omeprazole 20 mg capsule,delayed 20 mg PO DAILY 07/04/24 10/24/24 History release meloxicam 15 mg tablet 15 mg PO DAILY #90 tabs 09/08/24 10/24/24 Rx sertraline 50 mg tablet 50 mg PO QHS #30 tabs 10/16/24 10/24/24 Rx Patient hx anesthesia problems: none Family hx anesthesia problems: none Results Review: All pre-operative results and documents have been reviewed as part of the pre-operative evaluation. [facility] Past Medical History Medical History Anxiety PTSD (post-traumatic stress disorder) Irritable bowel syndrome with diarrhea Cerumen impaction Inguinal hernia History of gastroesophageal reflux (GERD) Hx of bronchitis Subclinical hyperthyroidism TAI on CPAP BMI 31.0-31.9,adult Marital dysfunction Dysuria Knee pain Cough Bronchitis BMI 29.0-29.9,adult Post-operative pain Impacted cerumen of both ears Nasal obstruction Nasal congestion Nasal septal deviation Sinusitis, chronic BMI 30.0-30.9,adult Thyroid nodule Surgical History Surgical History History of inguinal hernia repair Laparoscopic right inguinal hernia repair with mesh, da Darian assisted 05/01/23 [facility] History of tonsillectomy and adenoidectomy Family History Family History Father Colon polyp Mother No problems noted. Sibling Colon polyp Other Biallelic mutation of CHEK2 gene Carcinoma of colon Social History Social History Smoking status: Never smoker Second hand tobacco smoke exposure: No Alcohol intake: current Drinks per week: 3 Substance use: never Substance use type: does not use Do You Feel Safe in your Home?: Yes Lack of Transportation: No Lack of Food: Never True Current Housing: I Have Housing Concerned About Future Housing: No Difficulty Paying for Meds: No Currently Unemployed: No Education: Master's Degree or Higher Difficulty w/ Childcare or Family Care: No Living arrangements: with family Occupation/Education: occupation Additional occupation/education comments: [employer] Gender identity (if verbalized by the patient): Male Spiritual care concerns: No Anes - Eval Final PreProcedure Day of Procedure 10/24/24 09:28 Patient weight: overweight Heart: regular rate and rhythm Lungs: clear to auscultation Airway: Mallampati scale class II Neurological: alert and oriented Last oral intake: >/= 8 hours ASA classification: III Emergent: no Anesthetic plan: proceed Anesthesia type and monitoring: general GIVS and standard monitoring Results Review: All pre-operative results and documents have been reviewed as part of the pre-operative evaluation. Informed Consent: The patient's anesthetic plan and its attendant risks and benefits were discussed with the patient/family/POA. Questions were solicited and answers provided to the satisfaction of the patient/family/POA.
--- NOTE | 2024-10-24 09:53 | P.HP_ITS ---
History of Present Illness History of Present Illness Consent: Risks, benefits, and alternatives have been discussed and questions answered. Patient agrees to proceed with procedure. Chief complaint: GERD Narrative: Mainor Burch is a 39 year old male here for EGD, h/o gerd on ppi for over 6 years Review of Systems Review of Systems: All systems reviewed & are unremarkable except as noted in HPI and below PMFSH Past Medical History Medical History Anxiety PTSD (post-traumatic stress disorder) Irritable bowel syndrome with diarrhea Cerumen impaction Inguinal hernia History of gastroesophageal reflux (GERD) Hx of bronchitis Subclinical hyperthyroidism TAI on CPAP BMI 31.0-31.9,adult Marital dysfunction Dysuria Knee pain Cough Bronchitis BMI 29.0-29.9,adult Post-operative pain Impacted cerumen of both ears Nasal obstruction Nasal congestion Nasal septal deviation Sinusitis, chronic BMI 30.0-30.9,adult Thyroid nodule Surgical History Surgical History History of inguinal hernia repair Laparoscopic right inguinal hernia repair with mesh, da Darian assisted 05/01/23 [facility] History of tonsillectomy and adenoidectomy Family History Family History Father Colon polyp Mother No problems noted. Sibling Colon polyp Other Biallelic mutation of CHEK2 gene Carcinoma of colon Social History Social History Smoking status: Never smoker Second hand tobacco smoke exposure: No Alcohol intake: current Drinks per week: 3 Substance use: never Substance use type: does not use Do You Feel Safe in your Home?: Yes Lack of Transportation: No Lack of Food: Never True Current Housing: I Have Housing Concerned About Future Housing: No Difficulty Paying for Meds: No Currently Unemployed: No Education: Master's Degree or Higher Difficulty w/ Childcare or Family Care: No Living arrangements: with family Occupation/Education: occupation Additional occupation/education comments: [employer] Gender identity (if verbalized by the patient): Male Spiritual care concerns: No Meds Home Medications and Allergies Home Medications ?Medication ?Instructions ?Recorded ?Confirmed ?Type multivitamin 1 tablet PO DAILY 02/27/22 10/24/24 History glucosamine HCl 500 mg tablet 500 mg PO DAILY 08/02/22 10/24/24 History mupirocin 2 % topical ointment 1 applic topical BID #22 grams 06/25/23 10/24/24 Rx modafinil 200 mg tablet 200 mg PO QAM #30 tabs 03/07/24 10/24/24 Rx zolpidem 10 mg tablet (Ambien) 10 mg PO QHS PRN insomnia #30 tabs 05/21/24 10/16/24 Rx omeprazole 20 mg capsule,delayed 20 mg PO DAILY 07/04/24 10/24/24 History release meloxicam 15 mg tablet 15 mg PO DAILY #90 tabs 09/08/24 10/24/24 Rx sertraline 50 mg tablet 50 mg PO QHS #30 tabs 10/16/24 10/24/24 Rx Allergies Allergy/AdvReac Type Severity Reaction Status Date / Time No Known Allergies Allergy Verified 10/24/24 09:07 Vital Signs Vital Signs - 24 hr 10/24/24 09:08 Temperature 97 F L Pulse Rate 61 Respiratory Rate 18 Blood Pressure 126/81 Pulse Oximetry 99 Oxygen Delivery Room Air Exam Const: General: comfortable and no acute distress HENMT: Face/Nose/Sinus: Normal nares present Eyes: General: appearance normal, both eyes and all related structures Neck: Neck: no JVD Resp: Auscultation: clear to auscultation bilaterally Cardio: Rate: regular rate Rhythm: regular rhythm GI: Inspection: non-distended GI Palp: Yes Soft to palpation Skin: General skin exam: normal color Neuro: General: gait normal Speech: normal speech Extrem: General: normal to inspection Psych: Mental Status: mental status grossly normal Assessment and Plan Assessment and plan (1) GERD (gastroesophageal reflux disease): Code(s): K21.9 - Gastro-esophageal reflux disease without esophagitis Status: Acute Assessment and Plan: egd with bx (2) Irritable bowel syndrome with diarrhea: Code(s): K58.0 - Irritable bowel syndrome with diarrhea Status: Acute
--- NOTE | 2024-10-24 09:56 | S_PTH ---
PATIENT: Mainor Burch LOC: [facility]#:[id number] AGE/SX: 39/M ROOM: RE10/24/[address]: Sidney Collado MD : 1985 BED: DIS: 10/24/2024 SPEC #: [id number] RECD: 10/24/24 13:20 STATUS: MICHAEL RESigrid #: [id number] MATEUS: 10/24/24 09:[address]: Sidney Collado DEPT: [facility] Surgical RECD BY: Nery Mcmillan ENTERED: 10/24/24 13:20 SP TYPE: Surgical OTHR DR: Blair Franklin MD Tissues: A - Small Bowel Bx B - Gastric Biopsy C - Esophageal Biopsy Procedures: Hematoxylin and Eosin Stain Gross and Microscopic Level 4
[2024-10-24 10:05] VITALS: BP 119/65; PULSE 64; RESP 21; O2SAT 99
[2024-10-24 10:15] VITALS: BP 111/54; PULSE 57; RESP 17; O2SAT 100
[2024-10-24 10:25] VITALS: BP 118/78; PULSE 55; RESP 20; O2SAT 100
== END 2024-10-24 10:30 | disposition home or self-care (01) ==
PROVIDERS: PCP Family Medicine; Referring Provider Physician Assistant Medical; Visit Provider Internal Medicine Gastroenterology
PROC: 0DJ08ZZ Inspection of Upper Intestinal Tract, Via Natural or Artificial Opening Endoscopic (ICD-10-PCS; CPT 43239; principal; 2024-10-24 09:45)
DX: K21.9 Gastro-esophageal reflux disease without esophagitis (principal); K31.89 Other diseases of stomach and duodenum; K58.0 Irritable bowel syndrome with diarrhea; F43.10 Post-traumatic stress disorder, unspecified; F41.9 Anxiety disorder, unspecified; G47.33 Obstructive sleep apnea (adult) (pediatric); Z99.89 Dependence on other enabling machines and devices; Z98.890 Other specified postprocedural states; Z87.19 Personal history of other diseases of the digestive system; Z83.719 Family history of colon polyps, unspecified; Z80.0 Family history of malignant neoplasm of digestive organs
CPT/HCPCS: 43239; 88305; J2405; J2704; J7120

== ENCOUNTER 2025-01-16 12:01 | Outpatient (CLI) | payer BC, SELFPAY ==
--- NOTE | ~2025-01-16 | XR_ITS ---
Examination: XR knee RT 3V Clinical History: M25.569 - Pain in unspecified knee Comparison: Right knee films 08/11/2022 Technique: 3 views right knee Findings/impression: 1. No fracture, dislocation, or effusion right knee. Reviewed, dictated and finalized at location R.
== END 2025-01-16 12:02 | disposition home or self-care (01) ==
PROVIDERS: PCP Family Medicine; Visit Provider Nurse Practitioner Adult Health
DX: M25.561 Pain in right knee (principal)
CPT/HCPCS: 73562